=== PATIENT | female | born 1930 | race Caucasian/White ===

== ENCOUNTER 2019-06-18 03:29 | Emergency (ER) | payer OTHER ==
[2019-06-18 04:13] LABS: Protime INR 0.95
[2019-06-18 04:15] LABS: Basophils % 0.5 % (0-1.3); Hematocrit 35.7 % (36.0-45.0); RBC Red Blood Cell Count 3.88 M/uL (3.86-4.86)
[2019-06-18 04:31] LABS: ALT/SGPT 12 U/L (12-78); AST/SGOT 9 U/L (15-37); Albumin 3.4 g/dL (3.4-5.0); Alkaline Phosphatase 51 U/L (45-117); BUN Blood Urea Nitrogen 16 mg/dL (7-18); Bicarbonate 27 mmol/L (21-32); Bilirubin Direct 0.2 mg/dL (0-0.2); Bilirubin Total 0.8 mg/dL (0.2-1.0); Glucose Level 112 mg/dL (74-106); Magnesium 2.3 mg/dL (1.8-2.4); NT PRO-BNP 230 pg/mL (<450); Protein, Total 6.7 g/dL (6.4-8.2); Sodium Level 143 mmol/L (136-145); Troponin (Emerg Dept Use Only) < 0.02 ng/mL (0.0-0.045)
--- NOTE | 2019-06-18 05:51 | EDPHYS ---
Physician Documentation [facility] Name: Michaela Anguiano Age: 88 yrs Sex: Female : 1930 Arrival Date: 06/18/2019 Time: 03:37 Bed 2 Private MD: ED Physician Darinel Curtis HPI: 06/18 05:44 This 88 yrs old Female presents to ER via EMS with complaints of episode of ps1 SVT. 05:44 Patient BIBEMS for SVT. Patient noticed palpitations earlier in day associated with ps1 fatigue called EMS when she felt her heart racing. Patient evaluated by EMS and found patient in SVT and resolved with vagal maneuvers. Patient currently asymptomatic. . Historical: - Allergies: 03:52 PENICILLINS; ea 03:52 Latex, Natural Rubber; ea 03:52 adhesive tape; ea 03:52 Codeine; ea 03:52 erythromycin base; ea 03:52 Peanut; ea 03:52 Aspirin; ea - PSHx: 03:52 Hysterectomy; Cholecystectomy; Appendectomy; ea - Immunization history:: Adult Immunizations up to date. - Social history:: Smoking status: Patient/guardian denies using tobacco. - Ebola Screening: : No symptoms or risks identified at this time. ROS: 05:44 Constitutional: Negative for fever, chills, and weight loss, Eyes: Negative for injury, ps1 pain, redness, and discharge, Respiratory: Negative for shortness of breath, cough, wheezing, and pleuritic chest pain, Abdomen/GI: Negative for abdominal pain, nausea, vomiting, diarrhea, and constipation, MS/Extremity: Negative for injury and deformity, Skin: Negative for injury, rash, and discoloration, Neuro: Negative for headache, weakness, numbness, tingling, and seizure. 05:44 Cardiovascular: Positive for palpitations. Exam: 05:44 Constitutional: This is a well developed, well nourished patient who is awake, alert, ps1 and in no acute distress. Head/Face: Normocephalic, atraumatic. Eyes: Pupils equal round and reactive to light, extra-ocular motions intact. Lids and lashes normal. Conjunctiva and sclera are non-icteric and not injected. Chest/axilla: Normal chest wall appearance and motion. Nontender with no deformity. No lesions are appreciated. Cardiovascular: Regular rate and rhythm. No gallops, murmurs, or rubs. Normal PMI, no JVD. No pulse deficits. Respiratory: Lungs have equal breath sounds bilaterally, clear to auscultation and percussion. No rales, rhonchi or wheezes noted. No increased work of breathing, no retractions or nasal flaring. Abdomen/GI: Soft, non-tender, with normal bowel sounds. No distension or tympany. No guarding or rebound. No evidence of tenderness throughout. Skin: Warm, dry with normal turgor. Normal color with no rashes, no lesions, and no evidence of cellulitis. MS/ Extremity: Pulses equal, no cyanosis. Neurovascular intact. Full, normal range of motion. Neuro: Awake and alert, GCS 15, oriented to person, place, time, and situation. Cranial nerves II-XII grossly intact. Sensory grossly intact. Vital Signs: 03:48 BP 151 / 84; Pulse 87; Resp 18; Temp 98.2(TE); Pulse Ox 98% on R/A; Pain 0/10; ea 04:00 BP 151 / 70; Pulse 72; Resp 18; Pulse Ox 97% ; ea 05:00 BP 157 / 64; Pulse 68; Resp 18; Pulse Ox 98% ; ea 06:09 BP 140 / 60; Pulse 83; Resp 16; Temp 98.2(TE); Pulse Ox 97% on R/A; Pain 0/10; ak1 MDM: 04:12 Patient medically screened. ps1 05:44 Data reviewed: vital signs, nurses notes, lab test result(s), EKG, and as a result, I ps1 will discharge patient. 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 06/18 03:53 Order name: Basic Metabolic Panel; Complete Time: 05:01 ea 06/18 03:53 Order name: CBC with Diff; Complete Time: 05: ea 06/18 03:53 Order name: LFT's; Complete Time: 05: 06/18 03:53 Order name: Magnesium; Complete Time: 05: ea 06/18 03:53 Order name: NT PRO-BNP; Complete Time: 05: ea 06/18 03:53 Order name: PT-INR; Complete Time: 05: ea 06/18 03:53 Order name: Troponin (emerg Dept Use Only); Complete Time: 05: 06/18 03:53 Order name: XRAY Chest (1 view) 06/18 03:53 Order name: EKG; Complete Time: 03:56 06/18 03:53 Order name: Cardiac monitoring; Complete Time: 03:53 06/18 03:53 Order name: EKG - Nurse/Tech; Complete Time: 03:53 06/18 03:53 Order name: IV Saline Lock; Complete Time: 03:53 06/18 03:53 Order name: Labs collected and sent; Complete Time: 04:04 06/18 03:53 Order name: O2 Per Protocol; Complete Time: 03:53 06/18 03:53 Order name: O2 Sat Monitoring; Complete Time: 03:53 ea EC:44 Rate is 80 beats/min. Rhythm is regular. QRS [place] is Normal. IA interval is normal. QRS ps1 interval is normal. QT interval is normal. Q waves are Old in leads V1, V2. T waves are Normal. No ST changes noted. Clinical impression: NSR w/ Non-specific ST/T Changes. Administered Medications: No medications were administered Disposition: 06/18/19 05:51 Discharged to Home. Impression: Palpitations, Out of hospital supraventricular tachycardia. - Condition is Stable. - Discharge Instructions: Palpitations, Paroxysmal Supraventricular Tachycardia, [id number]. - Medication Reconciliation Form, Thank You Letter, Antibiotic Education, Prescription Opioid Use form. - Follow up: Private Physician; When: Tomorrow; Reason: Further diagnostic work-up, Recheck today's complaints, Re-evaluation by your physician. Follow up: Emergency Department; When: As needed; Reason: Trouble breathing, Worsening of condition. - Problem is new. - Symptoms are resolved. Signatures: Dispatcher [employer] EDMS Darlyn Shannon RN RN ea Singer, Phillip, MD MD ps1 Corrections: (The following items were deleted from the chart) :36 05:51 06/18/2019 05:51 Discharged to Home. Impression: Palpitations; Out of hospital ea supraventricular tachycardia. Condition is Stable. Forms are Medication Reconciliation Form, Thank You Letter, Antibiotic Education, Prescription Opioid Use. Follow up: Private Physician; When: Tomorrow; Reason: Further diagnostic work-up, Recheck today's complaints, Re-evaluation by your physician. Follow up: Emergency Department; When: As needed; Reason: Trouble breathing, Worsening of condition. Problem is new. Symptoms are resolved. ps1
--- NOTE | 2019-06-18 05:51 | ER ---
Nurse's Notes [facility] Name: Michaela Anguiano Age: 88 yrs Sex: Female : 1930 Arrival Date: 06/18/2019 Time: 03:37 Bed 2 Private MD: Diagnosis: Palpitations;Out of hospital supraventricular tachycardia Presentation: 06/18 03:41 Presenting complaint: EMS states: [facility] reports pt started having chest pain at 8 PM, ea pt went to bed and woke up with the same pain. Pt HR 190 on scene with SVT on the monitor, EMS had pt do vagal maneuvers, HR 80 and sinus rhythm after vagal maneuvers. 324 mg of ASA given per EMS. Transition of care: patient was not received from another setting of care. Onset of symptoms was June 18, 2019. Risk Assessment: Do you want to hurt yourself or someone else? Patient reports no desire to harm self or others. Initial Sepsis Screen: Does the patient meet any 2 criteria? No. Patient's initial sepsis screen is negative. Does the patient have a suspected source of infection? No. Patient's initial sepsis screen is negative. Care prior to arrival: 20 G to RAC, 324 mg ASA. 03:41 Method Of Arrival: EMS: [facility] ea 03:41 Acuity: JAQUI 3 ea Triage Assessment: 03:49 General: Appears in no apparent distress. Behavior is calm, cooperative, appropriate ea for age. Pain: Denies pain. Historical: - Allergies: 03:52 PENICILLINS; ea 03:52 Latex, Natural Rubber; ea 03:52 adhesive tape; ea 03:52 Codeine; ea 03:52 erythromycin base; ea 03:52 Peanut; ea 03:52 Aspirin; ea - PSHx: 03:52 Hysterectomy; Cholecystectomy; Appendectomy; ea - Immunization history:: Adult Immunizations up to date. - Social history:: Smoking status: Patient/guardian denies using tobacco. - Ebola Screening: : No symptoms or risks identified at this time. Screenin:47 Abuse screen: Denies threats or abuse. Nutritional screening: No deficits noted. ea Tuberculosis screening: No symptoms or risk factors identified. Fall Risk None identified. Assessment: 03:49 General: Appears in no apparent distress. Behavior is calm, cooperative, appropriate ea for age. Pain: Denies pain. Neuro: Level of Consciousness is awake, alert, obeys commands, Oriented to person, place, time, situation. Cardiovascular: Patient's skin is warm and dry. Respiratory: Airway is patent Respiratory effort is even, unlabored, Respiratory pattern is regular, symmetrical. GI: No signs and/or symptoms were reported involving the gastrointestinal system. Derm: Skin is pink, warm \T\ dry. Musculoskeletal: Circulation, motion, and sensation intact. 04:30 Reassessment: Patient and/or family updated on plan of care and expected duration. Pain ea level reassessed. Patient is alert, oriented x 3, equal unlabored respirations, skin warm/dry/pink. Patient states feeling better. 05:56 Reassessment: Patient and/or family updated on plan of care and expected duration. Pain ea level reassessed. Patient is alert, oriented x 3, equal unlabored respirations, skin warm/dry/pink. Patient states feeling better. 06:10 Reassessment: Patient appears in no apparent distress at this time. No changes from ak1 previously documented assessment. Patient and/or family updated on plan of care and expected duration. Pain level reassessed. Patient is alert, oriented x 3, equal unlabored respirations, skin warm/dry/pink. 06:30 Reassessment: Patient and/or family updated on plan of care and expected duration. Pain ea level reassessed. Patient is alert, oriented x 3, equal unlabored respirations, skin warm/dry/pink. Discharge instruction given to patient, verbalized the understanding of instruction. No s/s of pain or discomfort noted at this time. Pt left ED via wheelchair per staff, pt assisted to taxi per staff, pt tolerated well. Vital Signs: 03:48 BP 151 / 84; Pulse 87; Resp 18; Temp 98.2(TE); Pulse Ox 98% on R/A; Pain 0/10; ea 04:00 BP 151 / 70; Pulse 72; Resp 18; Pulse Ox 97% ; ea 05:00 BP 157 / 64; Pulse 68; Resp 18; Pulse Ox 98% ; ea 06:09 BP 140 / 60; Pulse 83; Resp 16; Temp 98.2(TE); Pulse Ox 97% on R/A; Pain 0/10; ak1 ED Course: 03:37 Patient arrived in ED. bb 03:41 Shannon, Darlyn, RN is Primary Nurse. ea 03:41 Darinel Curtis MD is Attending Physician. ps1 03:47 Triage completed. ea 03:47 Arm band placed on right wrist. Patient placed in an exam room, on a stretcher, on ea phototypesetting equipment monitor, on pulse oximetry. 03:48 Patient has correct armband on for positive identification. Placed in gown. Bed in low ea position. Call light in reach. Side rails up X2. 04:01 Maintain EMS IV. Dressing intact. Good blood return noted. Site clean \T\ dry. Gauge \T\ ea site: 20G RAC. 04:08 XRAY Chest (1 view) In Process Unspecified. EDMS 06:09 No provider procedures requiring assistance completed. ak1 06:26 IV discontinued, intact, bleeding controlled, No redness/swelling at site. Pressure ea dressing applied. Administered Medications: No medications were administered Outcome: 05:51 Discharge ordered by . ps1 06:09 Condition: improved ak1 06:09 Discharge instructions given to patient, Instructed on discharge instructions, follow up and referral plans. Demonstrated understanding of instructions, follow-up care. 06:33 Discharged to home via wheelchair, Pt assisted to Taxi per facility staff, tolerated ea well 06:36 Patient left the ED. ea Signatures: Dispatcher [employer] EDSaida Patel RN RN bb Krenek, Amber, RN RN Darlyn Eugene RN Darinel Huston ea, MD MD ps1
--- NOTE | 2019-06-18 07:34 | EKG ---
Test Date: 2019-06-18 Test Time: 03:39:06 First Assistant Manager: ROSSANA MEASUREMENT RESULTS: Intervals: Rate: 80 OR: 154 QRSD: 96 QT: 390 QTc: 449 [place]: P: 80 OR: 154 QRS: -36 T: 43 INTERPRETIVE STATEMENTS: Normal sinus rhythm Left axis deviation Possible Septal infarct, age undetermined Abnormal ECG Compared to ECG 08/14/2017 19:37:30 Left-axis deviation now present Possible Myocardial infarct finding now present Electronically Signed On 06-18-19 07:33:26 CDT by Kb Callaway
--- NOTE | 2019-06-18 08:48 | RAD REPORT ---
EXAM DESCRIPTION: Carol Single View06/18/2019 4:10 am CLINICAL HISTORY: Chest pain COMPARISON: November 2018 FINDINGS: The lungs are hyperaerated. The lungs appear clear of acute infiltrate. The heart is mildly enlarged IMPRESSION: COPD without visualization acute abnormality
== END 2019-06-18 06:36 | disposition home or self-care (01) ==
LOC: ER 03:29
DX: R00.2 Palpitations (principal); I47.1 Supraventricular tachycardia; Z88.0 Allergy status to penicillin; Z88.6 Allergy status to analgesic agent; Z88.1 Allergy status to other antibiotic agents; Z91.040 Latex allergy status; Z88.5 Allergy status to narcotic agent; Z91.010 Allergy to peanuts
CPT/HCPCS: 36415; 71045; 80048; 80076; 83735; 83880; 84484; 85025; 85610; 93005; 99284

== ENCOUNTER 2019-06-20 09:10 | Day surgery (SDC) | payer OTHER ==
[2019-06-19 11:55] LABS: Protime INR 0.95
--- NOTE | 2019-06-19 12:23 | RAD REPORT ---
EXAM DESCRIPTION: Carol Brian (2 Views)06/19/2019 11:56 am CLINICAL HISTORY: Preop for cardiac catheterization COMPARISON: June 18, 2019 FINDINGS: The lungs appear clear of acute infiltrate. The heart is normal size IMPRESSION: No acute abnormalities displayed
[2019-06-20] MEDS ORDERED: NA CHLORIDE 0.9% 500 ML ONE (09:32)
[2019-06-20] MEDS ORDERED: HEPA 1000U/500MLS 1,000 UNIT/500 ML BAG IV ONE (11:39)
[2019-06-20] MEDS ORDERED: MIDAZOLAM HCL 2 MG/2 ML INJ ONE (11:39)
[2019-06-20] MEDS ORDERED: ATROPINE SULF 1 MG/10 ML SYR IV ONE (11:40)
[2019-06-20] MEDS ORDERED: LIDOCAINE 1% MPF 30 ML VIAL ONE (11:40)
[2019-06-20] MEDS ORDERED: FENTANYL CITR 100 MCG/2 ML ONE (11:40)
[2019-06-20] MEDS ORDERED: NA CHLORIDE 0.9% 0 ML ONE (11:40)
--- NOTE | 2019-06-20 23:23 | OP ---
Surgeon: Segundo Munoz MD Rn Dermatology: Shawna Seo. Admitted on 06/20/2019 as an outpatient to the cardiac catheterization lab. History Of Present Illness: Ms. Anguiano is 88, continued to have substernal chest pain radiating to b oth shoulders and the back with shortness of breath and diaphoresis with exertion. Last catheterizat ion was in September 2018, showed no significant coronary artery disease. I initially did a stress te st on her, which was normal. However, she continued to complain of symptoms with walking up to not e moi 100 feet. We decided to repeat heart catheterization today. She was brought to the wood preserving plant laborer, pr epped and draped in the routine sterile fashion, given Versed for sedation. Right common femoral art demetris access was obtained with a 6-Kinyarwanda sheath. Angiography there was normal. Angio-Seal was used t o close the case. Coronary angiography using Hailey catheter revealed a normal RCA, which was nondo minant. Her circumflex was normal and dominant. Her LAD was normal without any significant disease. 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 She started having chest pain. Her left ventricular aortic pressure dampened to about 50 systolic. No evidence of stenosis was noted, I think she is having coronary spasm. Ther e were no complications. Blood loss 5 cc. Plan: Plan is for medical therapy change to a calcium channel wendy, add nitroglycerin. Anesthesia: Total conscious sedation was 30 minutes. Followup: Patient will go home today and see me in the office in the next 2 weeks. MEMO/ERLIN Voice ID: [id number] Report ID: [id number]
== END 2019-06-20 14:39 | disposition home or self-care (01) ==
LOC: CCL 09:10
DX: I20.0 Unstable angina (principal); I35.9 Nonrheumatic aortic valve disorder, unspecified; I10 Essential (primary) hypertension; E78.5 Hyperlipidemia, unspecified; E03.9 Hypothyroidism, unspecified; K21.9 Gastro-esophageal reflux disease without esophagitis; M19.90 Unspecified osteoarthritis, unspecified site; Z88.0 Allergy status to penicillin; Z91.010 Allergy to peanuts
CPT/HCPCS: 36415; 85610; 85730; 71046; 93454; C1893; C1760; J2250; J3010; J0583

== ENCOUNTER 2019-06-24 13:32 | Emergency (ER) | payer OTHER ==
[2019-06-24] MEDS ORDERED: NA CHLORIDE 0.9% 1,000 ML ONE (13:52)
[2019-06-24 14:08] LABS: Absolute Lymphocytes (CBC) 1.8 K/uL (0.7-4.9); Basophils % 0.8 % (0-1.3); Hematocrit 37.3 % (36.0-45.0); Lymphocytes % 32.9 % (15.3-44.8); MPV 7.9 fL (7.6-11.3); RBC Red Blood Cell Count 4.06 M/uL (3.86-4.86)
[2019-06-24 14:10] LABS: Protime INR 0.96
--- NOTE | 2019-06-24 14:20 | EKG ---
Test Date: 2019-06-24 Test Time: 13:46:42 Outpatient Receptionist: MIKEY MEASUREMENT RESULTS: Intervals: Rate: 75 OR: 146 QRSD: 92 QT: 390 QTc: 435 [place]: P: 72 OR: 146 QRS: -32 T: 38 INTERPRETIVE STATEMENTS: Normal sinus rhythm Left axis deviation Septal infarct, age undetermined Abnormal ECG Compared to ECG 06/18/2019 03:39:06 No significant changes Electronically Signed On 06-24-19 14:19:44 CDT by Kb Callaway
[2019-06-24 14:39] LABS: ALT/SGPT 15 U/L (12-78); AST/SGOT 14 U/L (15-37); Albumin 3.6 g/dL (3.4-5.0); Alkaline Phosphatase 48 U/L (45-117); BUN Blood Urea Nitrogen 14 mg/dL (7-18); Bicarbonate 28 mmol/L (21-32); Bilirubin Direct 0.2 mg/dL (0-0.2); Bilirubin Total 0.8 mg/dL (0.2-1.0); Glucose Level 126 mg/dL (74-106); Lipase 123 U/L (73-393); Magnesium 2.3 mg/dL (1.8-2.4); NT PRO-BNP 321 pg/mL (<450); Potassium 3.7 mmol/L (3.5-5.1); Sodium Level 140 mmol/L (136-145); Troponin (Emerg Dept Use Only) < 0.02 ng/mL (0.0-0.045)
--- NOTE | 2019-06-24 15:01 | EDPHYS ---
Physician Documentation [facility] Name: Michaela Anguiano Age: 88 yrs Sex: Female : 1930 Arrival Date: 06/24/2019 Time: 13:34 Bed 8 Private MD: ED Physician Marshall Restrepo HPI: 06/24 14:28 This 88 yrs old Female presents to ER via EMS with complaints of Chest berry Pressure, Chest Pain > 30 y/o. 14:28 The patient or guardian reports chest pain that is located primarily in the anterior berry chest wall, bilaterally. Onset: just prior to arrival. The pain does not radiate. Associated signs and symptoms: The patient has no apparent associated signs or symptoms. The chest pain is described as a pressure. Duration: The patient or guardian reports a single episode, that is now resolved, that lasted 15 second(s). Severity of pain: At its worst the pain was moderate in the emergency department the pain has resolved and did so just prior to arrival. The patient has experienced similar episodes in the past, several times. Historical: - Allergies: 13:47 adhesive tape; tw2 13:47 Aspirin; tw2 13:47 Codeine; tw2 13:47 erythromycin base; tw2 13:47 Latex, Natural Rubber; tw2 13:47 Peanut; tw2 13:47 PENICILLINS; tw2 - PSHx: 13:47 Hysterectomy; Cholecystectomy; Appendectomy; heart cath; tw2 - Immunization history:: Adult Immunizations. - Social history:: Smoking status: . - Ebola Screening: : Patient denies travel to an Ebola-affected area in the 21 days before illness onset. ROS: 14:28 Constitutional: Negative for fever, chills, and weight loss, Eyes: Negative for injury, berry pain, redness, and discharge, ENT: Negative for injury, pain, and discharge, Neck: Negative for injury, pain, and swelling, Respiratory: Negative for shortness of breath, cough, wheezing, and pleuritic chest pain, Abdomen/GI: Negative for abdominal pain, nausea, vomiting, diarrhea, and constipation, Back: Negative for injury and pain, : Negative for injury, bleeding, discharge, and swelling, MS/Extremity: Negative for injury and deformity, Skin: Negative for injury, rash, and discoloration, Neuro: Negative for headache, weakness, numbness, tingling, and seizure, Psych: Negative for depression, anxiety, suicide ideation, homicidal ideation, and hallucinations, Allergy/Immunology: Negative for hives, rash, and allergies, Endocrine: Negative for neck swelling, polydipsia, polyuria, polyphagia, and marked weight changes. 14:28 Cardiovascular: Positive for chest pain, of the chest. Exam: 14:28 Constitutional: This is a well developed, well nourished patient who is awake, alert, berry and in no acute distress. Head/Face: Normocephalic, atraumatic. Eyes: Pupils equal round and reactive to light, extra-ocular motions intact. Lids and lashes normal. Conjunctiva and sclera are non-icteric and not injected. Cornea within normal limits. Periorbital areas with no swelling, redness, or edema. ENT: Nares patent. No nasal discharge, no septal abnormalities noted. Tympanic membranes are normal and external auditory canals are clear. Oropharynx with no redness, swelling, or masses, exudates, or evidence of obstruction, uvula midline. Mucous membranes moist. Neck: Trachea midline, no thyromegaly or masses palpated, and no cervical lymphadenopathy. Supple, full range of motion without nuchal rigidity, or vertebral point tenderness. No Meningismus. Chest/axilla: Normal chest wall appearance and motion. Nontender with no deformity. No lesions are appreciated. Cardiovascular: Regular rate and rhythm with a normal S1 and S2. No gallops, murmurs, or rubs. Normal PMI, no JVD. No pulse deficits. Respiratory: Lungs have equal breath sounds bilaterally, clear to auscultation and percussion. No rales, rhonchi or wheezes noted. No increased work of breathing, no retractions or nasal flaring. Abdomen/GI: Soft, non-tender, with normal bowel sounds. No distension or tympany. No guarding or rebound. No evidence of tenderness throughout. Back: No spinal tenderness. No costovertebral tenderness. Full range of motion. Skin: Warm, dry with normal turgor. Normal color with no rashes, no lesions, and no evidence of cellulitis. MS/ Extremity: Pulses equal, no cyanosis. Neurovascular intact. Full, normal range of motion. Neuro: Awake and alert, GCS 15, oriented to person, place, time, and situation. Cranial nerves II-XII grossly intact. Motor strength 5/5 in all extremities. Sensory grossly intact. Cerebellar exam normal. Normal gait. Psych: Awake, alert, with orientation to person, place and time. Behavior, mood, and affect are within normal limits. Vital Signs: 13:35 BP 168 / 77; Pulse 82; Resp 17; Pulse Ox 99% on R/A; tw2 13:38 Temp 97.8(TE); Pulse Ox 1% ; Weight 59.42 kg (R); Height 5 ft. 2 in. (157.48 cm); Pain tw2 0/10; 14:44 BP 162 / 70; Pulse 71; Resp 18; Pulse Ox 98% on R/A; Pain 0/10; em1 15:45 BP 135 / 62; Pulse 68; Resp 17; Pulse Ox 98% on R/A; tw2 13:38 Body Mass Index 23.96 (59.42 kg, 157.48 cm) tw2 MDM: 13:38 Patient medically screened. [facility] 14:31 Data reviewed: vital signs, nurses notes, lab test result(s), EKG, radiologic studies, berry plain films. 06/24 13:40 Order name: Basic Metabolic Panel; Complete Time: 14:50 [facility] 06/24 13:40 Order name: CBC with Diff; Complete Time: 14:27 [facility] 06/24 13:40 Order name: LFT's; Complete Time: 14:50 [facility] 06/24 13:40 Order name: Magnesium; Complete Time: 14:50 [facility] 06/24 13:40 Order name: NT PRO-BNP; Complete Time: 14:50 [facility] 06/24 13:40 Order name: PT-INR; Complete Time: 14:27 [facility] 06/24 13:40 Order name: Troponin (emerg Dept Use Only); Complete Time: 14:50 [facility] 06/24 13:40 Order name: XRAY Chest (1 view); Complete Time: 15:45 [facility] 06/24 13:40 Order name: EKG; Complete Time: 13:43 [facility] 06/24 13:40 Order name: Cardiac monitoring; Complete Time: 13:46 [facility] 06/24 13:40 Order name: EKG - Nurse/Tech; Complete Time: 13:46 [facility] 06/24 13:40 Order name: IV Saline Lock; Complete Time: 15:31 [facility] 06/24 13:40 Order name: Lipase; Complete Time: 14:50 [facility] 06/24 13:40 Order name: Labs collected and sent; Complete Time: 15:31 [facility] 06/24 13:40 Order name: O2 Per Protocol; Complete Time: 13:46 [facility] 06/24 13:40 Order name: O2 Sat Monitoring; Complete Time: 13:46 [facility] Administered Medications: 13:50 Drug: NS 0.9% 1000 ml Route: IV; Rate: 125 ml/hr; Site: right antecubital; tw2 15:29 Follow up: IV Status: Order to discontinue infusion tw2 Disposition: 06/24/19 14:59 Discharged to Home. Impression: Chest pain, unspecified. - Condition is Stable. - Discharge Instructions: Nonspecific Chest Pain, Nonspecific Chest Pain, [id number]. - Medication Reconciliation Form, Thank You Letter, Antibiotic Education, Prescription Opioid Use form. - Follow up: Private Physician; When: 1 - 2 days; Reason: Recheck today's complaints, Continuance of care, Re-evaluation by your physician. Follow up: Segundo Munoz; When: 1 - 2 days; Reason: Recheck today's complaints, Continuance of care, Re-evaluation by your physician. Follow up: Segundo Munoz MD; When: Upon discharge from the Emergency Department; Reason: Re-evaluation by your physician. - Problem is new. - Symptoms have improved. Signatures: Dispatcher [employer] EDGA Marshall Restrepo MD MD cha Wise, Tara RN RN tw2 Corrections: (The following items were deleted from the chart) 15:00 14:59 06/24/2019 14:59 Discharged to Home. Impression: Chest pain, unspecified. [facility] Condition is Stable. Discharge Instructions: Nonspecific Chest Pain, Nonspecific Chest Pain, [id number]. Forms are Medication Reconciliation Form, Thank You Letter, Antibiotic Education, Prescription Opioid Use. Follow up: Private Physician; When: 1 - 2 days; Reason: Recheck today's complaints, Continuance of care, Re-evaluation by your physician. Follow up: Segundo Munoz; When: 1 - 2 days; Reason: Recheck today's complaints, Continuance of care, Re-evaluation by your physician. Problem is new. Symptoms have improved. [facility] 15:46 15:00 06/24/2019 14:59 Discharged to Home. Impression: Chest pain, unspecified. tw2 Condition is Stable. Discharge Instructions: Nonspecific Chest Pain, Nonspecific Chest Pain, [id number]. Forms are Medication Reconciliation Form, Thank You Letter, Antibiotic Education, Prescription Opioid Use. Follow up: Private Physician; When: 1 - 2 days; Reason: Recheck today's complaints, Continuance of care, Re-evaluation by your physician. Follow up: Segundo Munoz; When: Upon discharge from the Emergency Department; Reason: Re-evaluation by your physician. Problem is new. Symptoms have improved. berry
--- NOTE | 2019-06-24 15:01 | ER ---
Nurse's Notes [facility] Name: Michaela Anguiano Age: 88 yrs Sex: Female : 1930 Arrival Date: 06/24/2019 Time: 13:34 Bed 8 Private MD: Diagnosis: Chest pain, unspecified Presentation: 06/24 13:34 Presenting complaint: EMS states: pt was at [facility] visiting her , sitting tw2 down, and started having chest pressure suddenly, she states she had a previous episode like this before and had a heart cath recently. Transition of care: patient was not received from another setting of care. Onset of symptoms was June 24, 2019. Risk Assessment: Do you want to hurt yourself or someone else? Patient reports no desire to harm self or others. Initial Sepsis Screen: Does the patient meet any 2 criteria? No. Patient's initial sepsis screen is negative. Does the patient have a suspected source of infection? No. Patient's initial sepsis screen is negative. Care prior to arrival: None. 13:34 Method Of Arrival: EMS: [facility] tw2 13:34 Acuity: JAQUI 2 tw2 Triage Assessment: 13:35 General: Appears in no apparent distress. slender, well groomed, Behavior is calm, tw2 cooperative, appropriate for age. Pain: Complains of pain in chest. Historical: - Allergies: 13:47 adhesive tape; tw2 13:47 Aspirin; tw2 13:47 Codeine; tw2 13:47 erythromycin base; tw2 13:47 Latex, Natural Rubber; tw2 13:47 Peanut; tw2 13:47 PENICILLINS; tw2 - PSHx: 13:47 Hysterectomy; Cholecystectomy; Appendectomy; heart cath; tw2 - Immunization history:: Adult Immunizations. - Social history:: Smoking status: . - Ebola Screening: : Patient denies travel to an Ebola-affected area in the 21 days before illness onset. Screenin:35 Abuse screen: Denies threats or abuse. Nutritional screening: No deficits noted. tw2 Tuberculosis screening: No symptoms or risk factors identified. Fall Risk Secondary diagnosis (15 points) impaired mobility. Assessment: 13:35 General: Appears in no apparent distress. slender, well groomed, Behavior is calm, tw2 cooperative, appropriate for age. Pain: Complains of pain in chest Pain does not radiate. Pain began suddenly, 30 min ago. Pain: Pain began pt states "i had an episode here recently as the exact same thing and was seen here". Neuro: Level of Consciousness is awake, alert, obeys commands, Oriented to person, place, time, situation. Cardiovascular: Heart tones S1 S2 Patient's skin is warm and dry. Respiratory: Airway is patent Respiratory effort is even, unlabored, Respiratory pattern is regular, symmetrical, Breath sounds are clear bilaterally. GI: No signs and/or symptoms were reported involving the gastrointestinal system. Abdomen is flat, Bowel sounds present X 4 quads. : No signs and/or symptoms were reported regarding the genitourinary system. EENT: No signs and/or symptoms were reported regarding the EENT system. Derm: No signs and/or symptoms reported regarding the dermatologic system. Musculoskeletal: Range of motion: intact in all extremities. Vital Signs: 13:35 BP 168 / 77; Pulse 82; Resp 17; Pulse Ox 99% on R/A; tw2 13:38 Temp 97.8(TE); Pulse Ox 1% ; Weight 59.42 kg (R); Height 5 ft. 2 in. (157.48 cm); Pain tw2 0/10; 14:44 BP 162 / 70; Pulse 71; Resp 18; Pulse Ox 98% on R/A; Pain 0/10; em1 15:45 BP 135 / 62; Pulse 68; Resp 17; Pulse Ox 98% on R/A; tw2 13:38 Body Mass Index 23.96 (59.42 kg, 157.48 cm) tw2 ED Course: 13:34 Patient arrived in ED. tw2 13:35 Triage completed. tw2 13:35 Arm band placed on. tw2 13:35 Placed in gown. Bed in low position. Side rails up X2. Adult w/ patient. Cardiac tw2 monitor on. Pulse ox on. NIBP on. Warm blanket given. 13:35 Patient maintains SpO2 saturation greater than 95% on room air. tw2 13:38 Trinity Mensah, LUNA is Primary Nurse. tw2 13:38 Marshall Restrepo MD is Attending Physician. [facility] 13:50 Inserted saline lock: 22 gauge in right antecubital area, using aseptic technique. tw2 Blood collected. 14:17 EKG done, by turbine technician. reviewed by Masrhall Restrepo MD. [facility] 14:57 X-ray completed. Portable x-ray completed in exam room. Patient tolerated procedure mh1 well. 14:59 Segundo Munoz MD is Referral Physician. [facility] 15:00 Referral Physician role handed off by Segundo Munoz MD [facility] 15:00 Segundo Munoz MD is Referral Physician. [facility] 15:00 XRAY Chest (1 view) In Process Unspecified. EDMS 15:32 Inserted. tw2 15:46 No provider procedures requiring assistance completed. IV discontinued, intact, tw2 bleeding controlled, No redness/swelling at site. Pressure dressing applied. Administered Medications: 13:50 Drug: NS 0.9% 1000 ml Route: IV; Rate: 125 ml/hr; Site: right antecubital; tw2 15:29 Follow up: IV Status: Order to discontinue infusion tw2 Outcome: 14:59 Discharge ordered by . [facility] 15:45 Discharged to home with friend, pt to go to Dr. Munoz's office for event monitor at tw2 this time 15:45 Condition: stable 15:45 Discharge instructions given to patient, friend, Instructed on discharge instructions, follow up and referral plans. Demonstrated understanding of instructions, follow-up care. 15:46 Patient left the ED. tw2 Signatures: Dispatcher [employer] Marshall Hanna MD MD cha Harvey, Martha 1 Mook Mckeon 1 Trinity Mensah, RN RN tw2 Luzma Ovalles 3
--- NOTE | 2019-06-24 15:35 | RAD REPORT ---
EXAM DESCRIPTION: RAD - Chest Single View - 06/24/2019 3:01 pm CLINICAL HISTORY: Chest pain and pressure COMPARISON: June 19 TECHNIQUE: AP portable chest image was obtained 1450 hours . FINDINGS: No focal lung parenchymal process. Interstitial pattern is prominent but stable from prior imaging. Prominent costochondral calcifications present. Heart and vasculature are normal. No measur able pleural effusion and no pneumothorax. No acute bony abnormality seen. No acute aortic findings s uspected. IMPRESSION: No acute cardiopulmonary process. No significant change from comparison.
== END 2019-06-24 15:46 | disposition home or self-care (01) ==
LOC: ER 13:32
DX: R07.9 Chest pain, unspecified (principal); Z88.0 Allergy status to penicillin; Z88.6 Allergy status to analgesic agent; Z91.040 Latex allergy status; Z88.5 Allergy status to narcotic agent; Z91.010 Allergy to peanuts
CPT/HCPCS: 96361; 93005; 85025; 80048; 36415; 83735; 85610; 80076; 84484; 83690; 83880; 71045; 96360; 99285; J7030

== ENCOUNTER 2019-06-30 21:20 | Emergency (ER) | payer OTHER ==
[2019-06-30 21:45] LABS: Absolute Lymphocytes (CBC) 2.6 K/uL (0.7-4.9); Basophils % 0.7 % (0-1.3); Hematocrit 37.9 % (36.0-45.0); Lymphocytes % 40.7 % (15.3-44.8); MPV 7.6 fL (7.6-11.3); RBC Red Blood Cell Count 4.07 M/uL (3.86-4.86)
[2019-06-30 21:48] LABS: Protime INR 0.97
[2019-06-30 22:04] LABS: ALT/SGPT 15 U/L (12-78); AST/SGOT 10 U/L (15-37); Albumin 3.7 g/dL (3.4-5.0); Alkaline Phosphatase 49 U/L (45-117); BUN Blood Urea Nitrogen 16 mg/dL (7-18); Bicarbonate 26 mmol/L (21-32); Bilirubin Direct 0.2 mg/dL (0-0.2); Bilirubin Total 0.8 mg/dL (0.2-1.0); Glucose Level 98 mg/dL (74-106); Magnesium 2.5 mg/dL (1.8-2.4); NT PRO-BNP 220 pg/mL (<450); Potassium 4.2 mmol/L (3.5-5.1); Protein, Total 6.9 g/dL (6.4-8.2); Sodium Level 140 mmol/L (136-145); Troponin (Emerg Dept Use Only) < 0.02 ng/mL (0.0-0.045)
--- NOTE | 2019-06-30 22:28 | ER ---
Nurse's Notes [facility] Name: Michaela Anguiano Age: 88 yrs Sex: Female : 1930 Arrival Date: 06/30/2019 Time: 21:24 Bed 25 Private MD: Diagnosis: Chest pain, unspecified Presentation: 06/30 21:34 Presenting complaint: Patient states: Reports she started having chest pain about two ea hours ago, pt reports it's in the epigastric area pain rated 6/10, does not radiate. Is being seen by director of rooms and has been put on a halter monitor. Transition of care: patient was not received from another setting of care. Onset of symptoms was June 30, 2019. Risk Assessment: Do you want to hurt yourself or someone else? Patient reports no desire to harm self or others. Initial Sepsis Screen: Does the patient meet any 2 criteria? No. Patient's initial sepsis screen is negative. Does the patient have a suspected source of infection? No. Patient's initial sepsis screen is negative. Care prior to arrival: None. 21:34 Method Of Arrival: Wheelchair ea 21:34 Acuity: JAQUI 3 ea Triage Assessment: 21:38 General: Appears uncomfortable, Behavior is appropriate for age. Pain: Denies pain. ea Neuro: Level of Consciousness is awake, alert, obeys commands, Oriented to person, place, time, situation. Cardiovascular: Patient's skin is warm and dry. Respiratory: Airway is patent Respiratory effort is even, unlabored, Respiratory pattern is regular, symmetrical. Derm: Skin is pink, warm \T\ dry. - Immunization history:: Adult Immunizations up to date. - Social history:: Smoking status: Patient/guardian denies using tobacco. - Ebola Screening: : No symptoms or risks identified at this time. Screenin:38 Abuse screen: Denies threats or abuse. Nutritional screening: No deficits noted. ea Tuberculosis screening: No symptoms or risk factors identified. Fall Risk None identified. Assessment: 21:40 General: Appears in no apparent distress. comfortable, Behavior is calm, cooperative. rv Pain: Complains of pain in chest Pain does not radiate. Pain currently is 3 out of 10 on a pain scale. Quality of pain is described as pressure, Pain began suddenly. Neuro: Level of Consciousness is awake, alert, obeys commands, Oriented to person, place, time, situation. Cardiovascular: Rhythm is regular. Respiratory: Airway is patent. GI: No signs and/or symptoms were reported involving the gastrointestinal system. : No signs and/or symptoms were reported regarding the genitourinary system. EENT: No signs and/or symptoms were reported regarding the EENT system. Derm: Skin is intact. Musculoskeletal: No signs and/or symptoms reported regarding the musculoskeletal system. 22:40 Reassessment: FRANCISCO JAVIER ROE NP EXPLAINED AT BEDSIDE TO THE PATIENT THE PLAN OF CARE rv AND THE RESULTS OF THE LAST VISITS FOR THE LAST 12 DAYS. PATIENT DECIDED TO GO HOME AFTER THE BLOOD RESULTS CAME BACK AND SIGNED THE AMA. Vital Signs: 21:38 BP 151 / 67; Pulse 80; Resp 18; Temp 97.8; Pulse Ox 99% on R/A; Weight 59.42 kg; Height ea 5 ft. 2 in. (157.48 cm); Pain 6/10; 22:00 BP 144 / 57; Pulse 70; Resp 15; Pulse Ox 98% on R/A; rv 21:38 Body Mass Index 23.96 (59.42 kg, 157.48 cm) ea ED Course: 21:24 Patient arrived in ED. ag3 21:27 Prakash Randolph, LUNA is Primary Nurse. rv 21:27 Francisco Javier Roe NP is PHCP. pm1 21:28 Ha Acosta MD is Attending Physician. pm1 21:37 Triage completed. ea 21:37 Patient has correct armband on for positive identification. Bed in low position. Call ea light in reach. Side rails up X2. air sampling and monitoring on. Pulse ox on. NIBP on. 21:40 Arm band placed on right wrist. Patient placed in an exam room, on a stretcher, on ea threat monitoring analyst, on pulse oximetry. 21:40 Patient maintains SpO2 saturation greater than 95% on room air. ea 21:43 Initial lab(s) drawn, by me, sent to lab. Inserted saline lock: 20 gauge in left rv antecubital area, using aseptic technique. Blood collected. 22:07 XRAY Chest (1 view) In Process Unspecified. EDMS 22:42 No provider procedures requiring assistance completed. IV discontinued, intact, rv bleeding controlled, No redness/swelling at site. Pressure dressing applied. Administered Medications: No medications were administered Outcome: AMA AMA form signed rv Condition: stable : Patient left the ED. rv Signatures: Dispatcher [employer] EDMS Francisco Javier Roe NP DRILLER OPERATOR pm1 Darlyn Shannon, RN RN Prakash Cannon RN RN Radha Mckeon ag3
--- NOTE | 2019-06-30 22:31 | EDPHYS ---
Physician Documentation [facility] Name: Michaela Anguiano Age: 88 yrs Sex: Female : 1930 Arrival Date: 06/30/2019 Time: 21:24 Bed 25 Private MD: ED Physician Ha Acosta HPI: 06/30 21:28 This 88 yrs old Female presents to ER via Wheelchair with complaints of Chest pm1 Pain. 21:28 The patient or guardian reports chest pain that is located primarily in the epigastric pm1 area. Onset: just prior to arrival. The pain does not radiate. Associated signs and symptoms: Pertinent negatives: cough, diaphoresis, dizziness, headache, nausea, shortness of breath, vomiting. The chest pain is described as burning. Duration: The patient or guardian reports a single episode, that is now resolved. Modifying factors: The symptoms are alleviated by nothing. the symptoms are aggravated by nothing. Severity of pain: in the emergency department the pain has resolved. The patient has experienced similar episodes in the past, Seen here 6 days ago with the same presentation. The patient has been recently seen at the [facility] Emergency [facility], last week, for similar complaints labs were performed, X-rays were performed. - Immunization history:: Adult Immunizations up to date. - Social history:: Smoking status: Patient/guardian denies using tobacco. - Ebola Screening: : No symptoms or risks identified at this time. ROS: 21:45 Constitutional: Negative for fever, chills, and weight loss, Eyes: Negative for injury, pm1 pain, redness, and discharge, ENT: Negative for injury, pain, and discharge, Neck: Negative for injury, pain, and swelling. 21:45 Respiratory: Negative for shortness of breath, cough, wheezing, and pleuritic chest pain, Abdomen/GI: Negative for abdominal pain, nausea, vomiting, diarrhea, and constipation, Back: Negative for injury and pain, : Negative for injury, bleeding, discharge, and swelling, MS/Extremity: Negative for injury and deformity, Skin: Negative for injury, rash, and discoloration, Neuro: Negative for headache, weakness, numbness, tingling, and seizure. 21:45 Cardiovascular: Positive for chest pain, Negative for edema, palpitations. Exam: 21:45 Constitutional: This is a well developed, well nourished patient who is awake, alert, pm1 and in no acute distress. Head/Face: Normocephalic, atraumatic. Eyes: Pupils equal round and reactive to light, extra-ocular motions intact. Lids and lashes normal. Conjunctiva and sclera are non-icteric and not injected. Cornea within normal limits. Periorbital areas with no swelling, redness, or edema. ENT: Nares patent. No nasal discharge, no septal abnormalities noted. Tympanic membranes are normal and external auditory canals are clear. Oropharynx with no redness, swelling, or masses, exudates, or evidence of obstruction, uvula midline. Mucous membranes moist. Neck: Trachea midline, no thyromegaly or masses palpated, and no cervical lymphadenopathy. Supple, full range of motion without nuchal rigidity, or vertebral point tenderness. No Meningismus. 21:45 Chest/axilla: Normal chest wall appearance and motion. Nontender with no deformity. No lesions are appreciated. 21:45 Respiratory: Lungs have equal breath sounds bilaterally, clear to auscultation and percussion. No rales, rhonchi or wheezes noted. No increased work of breathing, no retractions or nasal flaring. Abdomen/GI: Soft, non-tender, with normal bowel sounds. No distension or tympany. No guarding or rebound. No evidence of tenderness throughout. Back: No spinal tenderness. No costovertebral tenderness. Full range of motion. Skin: Warm, dry with normal turgor. Normal color with no rashes, no lesions, and no evidence of cellulitis. MS/ Extremity: Pulses equal, no cyanosis. Neurovascular intact. Full, normal range of motion. 21:45 Cardiovascular: Rate: normal, Rhythm: regular, Pulses: no pulse deficits are appreciated, Heart sounds: normal. 21:45 Neuro: Orientation: is normal, Motor: is normal, Sensation: is normal, no obvious gross deficits. Vital Signs: 21:38 BP 151 / 67; Pulse 80; Resp 18; Temp 97.8; Pulse Ox 99% on R/A; Weight 59.42 kg; Height ea 5 ft. 2 in. (157.48 cm); Pain 6/10; 22:00 BP 144 / 57; Pulse 70; Resp 15; Pulse Ox 98% on R/A; rv 21:38 Body Mass Index 23.96 (59.42 kg, 157.48 cm) ea MDM: 21:28 Patient medically screened. pm1 22:24 Data reviewed: vital signs. Data interpreted: Pulse oximetry: on room air is 99 %. pm1 Interpretation: normal. Refusal of service: The patient/guardian displays adequate decision making capability and despite a detailed discussion of alternatives, benefits, risks, and consequences refuses: Admission to the hospital for further work-up and treatment, Repeat troponin. Patient feels better and wants to go home now. 06/30 21:28 Order name: Basic Metabolic Panel; Complete Time: 22:24 pm1 06/30 21:28 Order name: CBC with Diff; Complete Time: 22:24 pm1 06/30 21:28 Order name: LFT's; Complete Time: 22:24 pm1 06/30 21:28 Order name: Magnesium; Complete Time: 22:24 pm06/30 21:28 Order name: NT PRO-BNP; Complete Time: 22:24 pm06/30 21:28 Order name: PT-INR; Complete Time: 22:24 pm1 06/30 21:28 Order name: Troponin (emerg Dept Use Only); Complete Time: 22:24 pm1 06/30 21:28 Order name: XRAY Chest (1 view) pm1 06/30 21:28 Order name: EKG; Complete Time: 21:30 pm1 06/30 21:28 Order name: Cardiac monitoring; Complete Time: 21:40 pm06/30 21:28 Order name: EKG - Nurse/Tech; Complete Time: 21:40 pm06/30 21:28 Order name: IV Saline Lock; Complete Time: 21:40 pm06/30 21:28 Order name: Labs collected and sent; Complete Time: 21:40 pm1 06/30 21:28 Order name: O2 Per Protocol; Complete Time: 21:40 pm06/30 21:28 Order name: O2 Sat Monitoring; Complete Time: 21:40 pm1 Administered Medications: No medications were administered Disposition: 07/01 10:48 Co-signature as Attending Physician, Ha Acosta MD I agree with the assessment and tw4 plan of care. Disposition: 06/30/19 22:26 Patient has left against medical advice. Impression: Chest pain, unspecified. - Patients states they are going to Home. - Condition is Stable. - Discharge Instructions: Nonspecific Chest Pain. Follow up: Emergency Department; When: Upon discharge from the Emergency Department; Reason: Worsening of condition. Follow up: Private Physician; When: Upon discharge from the Emergency Department; Reason: Worsening of condition. - Problem is new. - Symptoms have improved. Signatures: Dispatcher [employer] EDMS Francisco Javier Roe NP DIRECTOR PARK pm1 Darlyn Shannon RN RN Ha Wilcox MD MD tw4 Prakash Randolph RN RN rv Corrections: (The following items were deleted from the chart) 06/30 22:43 22:26 06/30/2019 22:26 Patients has left against medical advice. Impression: Chest rv pain, unspecified. Patient states they are going to Home. Condition is Stable. Follow up: Emergency Department; When: Upon discharge from the Emergency Department; Reason: Worsening of condition. Follow up: Private Physician; When: Upon discharge from the Emergency Department; Reason: Worsening of condition. Problem is new. Symptoms have improved. pm1
--- NOTE | 2019-07-01 08:26 | RAD REPORT ---
EXAM DESCRIPTION: RAD - Chest Single View - 06/30/2019 10:05 pm CLINICAL HISTORY: Chest pain COMPARISON: June 24 TECHNIQUE: AP portable chest image was obtained 2157 hours . FINDINGS: No focal lung parenchymal process. Interstitial pattern matches comparison. Heart and vasc ulature are normal. No measurable pleural effusion and no pneumothorax. No acute bony abnormality see n. No acute aortic findings suspected. IMPRESSION: No acute cardiopulmonary process. No significant interval change.
--- NOTE | 2019-07-01 09:59 | EKG ---
Test Date: 2019-06-30 Test Time: 21:34:16 Filter Tender: KHADIJAHT MEASUREMENT RESULTS: Intervals: Rate: 70 MN: 144 QRSD: 92 QT: 412 QTc: 444 Trimble: P: 74 MN: 144 QRS: -34 T: 43 INTERPRETIVE STATEMENTS: Normal sinus rhythm Left axis deviation Septal infarct, age undetermined Abnormal ECG Compared to ECG 06/24/2019 13:46:42 No significant changes Electronically Signed On 07-01-19 09:58:24 CDT by Kb Callaway
== END 2019-06-30 22:43 | disposition left against medical advice (07) ==
LOC: ER 21:20
DX: R07.9 Chest pain, unspecified (principal)
CPT/HCPCS: 36415; 71045; 80048; 80076; 83735; 83880; 84484; 85025; 85610; 93005

== ENCOUNTER 2020-12-15 06:52 | Day surgery (SDC) | payer OTHER ==
[2020-12-11 09:34] LABS: Absolute Lymphocytes (CBC) 1.4 K/uL (0.7-4.9); Basophils % 0.5 % (0-1.3); Hematocrit 38.1 % (36.0-45.0); Lymphocytes % 27.9 % (15.3-44.8); MPV 8.1 fL (7.6-11.3); RBC Red Blood Cell Count 4.08 M/uL (3.86-4.86)
[2020-12-11 09:52] LABS: Urine Appearance CLOUDY; Urine Bilirubin NEGATIVE (NEG); Urine Blood NEGATIVE (NEG); Urine Color YELLOW; Urine Glucose NEGATIVE (NEG); Urine Protein NEGATIVE (NEG); Urine Specific Gravity 1.015 (1.005-1.030); Urine pH 5.5 (5.0-7.0)
[2020-12-11 09:54] LABS: Protime INR 0.93
[2020-12-11 10:00] LABS: Urine Microscopic Reflex ORDER UMIC
[2020-12-11 10:00] LABS: Potassium 3.9 mmol/L (3.5-5.1)
[2020-12-11 10:01] LABS: Urine Bacteria LOADED /HPF (<20); Urine RBC NONE SEEN /HPF (NONE SEEN)
[2020-12-15] MEDS ORDERED: CLINDAMYCIN INJ 900 MG in NA CHLORIDE 0.9% 50 ML IV SCH (07:00)
[2020-12-15] MEDS ORDERED: FENTANYL CITR 100 MCG/2 ML ONE ×2 (07:15→09:49)
[2020-12-15] MEDS ORDERED: LIDOCAINE 1% MPF 5 ML VIAL ONE (07:15)
[2020-12-15] MEDS ORDERED: propofoL 200 MG/20 ML VIAL IV ONE (07:15)
[2020-12-15] MEDS ORDERED: CEFAZOLIN ONE (07:17)
[2020-12-15] MEDS ORDERED: Ringers Lactate 1,000 ML IV ONE (07:18)
[2020-12-15] MEDS ORDERED: NA CHLORIDE 0.9% 100 ML IV ONE (07:29)
[2020-12-15] MEDS: CLINDAMYCIN 900MG/D5W 0 MG/0 ML IVPB IV ONE ×2 (07:55→08:30)
[2020-12-15] MEDS ORDERED: dexAMETHasone 10 MG/ML VIAL ONE (08:01)
[2020-12-15] MEDS: VASOPRESSIN 20 UNIT/ML VIAL ONE ×2 (08:30→08:36)
[2020-12-15] MEDS: Ringers Lactate 1,000 ML IV ONE ×3 (09:53→09:58)
[2020-12-15] MEDS ORDERED: MEPERIDINE HCL 25 MG/ML SYR ONE (11:30)
[2020-12-15] MEDS ORDERED: ONDANSETRON 4 MG/2 ML VIAL ONE (11:31)
[2020-12-15] MEDS ORDERED: NITROFURAN MACRO 100 MG CAP PO ONE (13:15)
[2020-12-15 14:53] VITALS: O2SAT 95
[2020-12-15] MEDS ORDERED: MEPERIDINE HCL 50 MG/ML IM PRN (14:58)
[2020-12-15] MEDS ORDERED: IBUPROFEN 600 MG TAB PO PRN (14:58)
[2020-12-15] MEDS ORDERED: PROMETHAZINE INJ 25 MG/ML AMP IV PRN (14:58)
[2020-12-15] MEDS ORDERED: ACETAMINOPHEN 325 MG TABLET PO PRN (14:58)
[2020-12-15 15:54] VITALS: BMI 25.0
[2020-12-15] MEDS: NITROFURAN MACRO 100 MG CAP PO SCH (20:37)
[2020-12-16 07:38] LABS: Absolute Lymphocytes (CBC) 1.2 K/uL (0.7-4.9); Basophils % 0.5 % (0-1.3); Hematocrit 31.6 % (36.0-45.0); Lymphocytes % 21.8 % (15.3-44.8); MPV 8.4 fL (7.6-11.3); RBC Red Blood Cell Count 3.42 M/uL (3.86-4.86)
[2020-12-16] MEDS: NITROFURAN MACRO 100 MG CAP PO SCH (13:20)
[2020-12-16 15:51] VITALS: BP 127/54; TEMP 98.1
--- NOTE | 2020-12-20 20:41 | OP ---
Date of Procedure: 12/15/2020 Surgeon: Carmen Miranda MD Preoperative Diagnoses: Stage III vaginal wall prolapse, anterior wall and posterior wall prolapse w ith anterior greater than the posterior, and occult stress urinary incontinence. Postoperative Diagnoses: Stage III vaginal wall prolapse, anterior wall and posterior wall prolapse with anterior greater than the posterior, occult stress urinary incontinence, and perineal body defec t. Procedures Performed: 1.Vaginal colpocleisis. 2.Perineorrhaphy. 3.Mid-urethral sling and cystoscopy. Anesthesia: General. Specimens: None. Complications: None. Drains: Delgado catheter. Condition: Stable. Findings: Her POP-Q +1, +3, 0, 4, moderate, 6, +1, 0, and NA. Perineal body defect was significant with a distal most defect extending into the perineum. The perineal body itself was not too thin. The anterior defect and apical was significant and much larger than the posterior defect, slightly as ymmetrical. So, plan was made to take the larger trapezoid piece of epithelium out from the anterior wall, then the posterior wall. These were both drawn to match up each other and a transverse closur e was done at the very distal part. Then, the sling was placed without any problems. Then, cystosco py was negative without any foreign body or injury to the bladder. Both ureteric orifices were paten t. Indications: The patient is an 89-year-old female, who presented with vaginal prolapse about 8 years ago on my practice. She came with a vaginal pessary that was fitted, a donut pessary by Dr. Brower . This was continued for years. Then, she did not want to use any pessary. This caused more bulge symptoms and recurrent bladder infections, so she came back for refitting; however, at this point, he r vaginal introitus appeared to be larger, the genital hiatus appeared to be larger, and on fitting d ifferent sizers and types of pessaries, they did not work for her either. There was expulsion, signi ficant descend that led to the patient's discomfort and pain when she was sitting or expulsion that s he had to manage herself and sometimes came to the office. Despite all these, she did not have any s ignificant problems, but in the past 1 year she has come multiple times for problems with the pessary and the bladder infections as well as discomfort with pessary management. As her dementia has progr essed, it has become much more difficult for her to do self-care and she was needing multiple appoint ments in a much more frequent fashion with incomplete emptying. So finally, discussed about the opti ons of surgical vaginal colpocleisis and we have talked about this for years and reconstructive optio ns as well. At this time, she was confident that she wants to proceed with this as it was very diffi cult to deal with the prolapse and the pessary. After detail informed consent was performed with the patient and multiple visits in the presence of h er and a friend, she was finally consented after medical clearance from Dr. Munoz and Dr. Haily marvin. She was brought to the office and preop was done in a very thorough fashion. Then, plan to dis charge her the same day if she was mentally able to, however, backup plan to keep her overnight if th at was not feasible, especially during the COVID time. Due to all her multiple office visits and her worsening status, this was deemed to be an accessory procedure. Description Of Procedure: After informed consent was verified, she was taken back to OR, placed in a supine fashion on the operative table. General anesthesia was given. She was placed in dorsal lith otomy position. We discussed about the options of spinal and general anesthesia with anesthesiologis t, which was much more comfortable with a general anesthetic. She was then placed in a dorsal lithotomy position using Mark Anthony stirrups. Lower abdomen, vulva, vagin a, and perineum were prepped and draped in a sterile fashion. Delgado was placed to drain the bladder and retracted superiorly. Then, the POP-Q was done and is as dictated above. After identifying the distal portion of the anterior wall at the urethrovesical junction, an Allis wa s placed here. Then, the vaginal wall was marked and 2 Allis was placed on each side of the vaginal apex and the distal wall was also checked and Allis was placed at inner margin of the vestibule on ei ther sides. Once all this was done, the trapezoid skin incision was marked out in the anterior wall as well as the posterior wall making sure that eventually the distal portions were matched, so that t here could be a transverse closure for this patient. This was more the lateral way that the distal p ubic cervical fascia and the distal rectovaginal fascia were falling together. Once all this was planned and marked out, dilute vasopressin 20 units and 50 cc of normal saline was injected, 30 cc in the anterior wall in the areas of the dissection. Then, a trapezoid incision was made on all borders with a 15 blade, then the vaginal epithelium was denuded and removed from the ant erior wall. Once all this was done, then posteriorly, similar dissection marking was made and inject ion was done. Then, the epithelium was incised at all the borders and then excised using the knife. Once all the connective tissue was exposed underneath as well as a small apical enterocele, this was closed with the help of two 3-0 Vicryl sutures in an interrupted fashion. Once this was done, then the transverse closure was started at the very proximal part of the apex and here the anterior wall w as sewn to the posterior wall using 2-0 PDS. Then proceeded to finish the right lateral wall closure with a continuous running PDS and then went onto the left wall closure with 2-0 PDS in a continuous running fashion to the apex. Once all this was done, the anterior and posterior wang were brought t ogether with interrupted 2-0 Vicryl sutures in a [id number]-eg-chmjo fashion and once all 2 layers of jaison sure was done, then I was at the distal part. So at this point, the closure was performed with the h elp of 2-0 Vicryl in an interrupted [id number] fashion. About 4 sutures were placed for closure . Once this was done, there was excellent approximation of the distal pubocervical and rectovaginal connective tissue. Then, perineum was opened up in the midline and then dissected laterally to expos e the lateral part of the perineal body and the scar. Once the skin was excised, then 2-0 Vicryl sut ures were placed in a simple fashion from [id number], 3 were placed. Once this was completed, then the perineal incision was closed with the help of 3-0 Vicryl in a continuous running fashion, subcut aneous and subcuticular, and closed. Rectal exam was performed and no evidence of any foreign body or perforation. The mid-urethral area was picked up with the help of 2 Allis clamps and injected with dilute vasopres sin. Then, the tracts were also injected with this. Then, 15 blade was used to make a 1 cm mid-uret hral incision. Dissection was carried underneath the fascia creating a tunnel going towards the infe rior pubic ramus on the ipsilateral side. Once hugging this, obturator space was entered, rupture of membrane DICTATION ENDS HERE. TONA/ERLIN Voice ID: [id number] Report ID: [id number]
--- NOTE | 2020-12-20 21:02 | OP ---
Date of Procedure: 12/15/2020 Surgeon: Carmen Miranda MD Addendum: Mid-urethral sling: After the tunnels were created. The spike was passed along the wing guide into the obturator space and turning the spike, hugging the inferior pubic ramus, I exited at t he 0.2 cm lateral to the groin fold avoiding the adductor tendon. Then on the opposite side, similar path was taken after placing the wing guide and guiding the spike to the obturator space and perfora ting the obturator membrane. The wing guide was removed and spike turned and exited at the point sim ilar to the opposite side. Then, both plastic sheaths were pulled out through the skin. Sheath and the sling were held with Rosie clamps. Under the mid urethra, this was tensioned appropriately using Metzenbaum scissors in the midline. Then, thorough irrigation with antibiotic solution was done. S heaths were pulled out leaving the mesh in the right tensioned spot. Then, both slings were trimmed, very flushed with the skin. Then, skin pulled up and closed with the help of Dermabond on both side s. The vaginal incision was closed with the help of 3-0 Vicryl in a continuous running locked fashio n. Then, Delgado was removed and cystoscopy was performed with a 17-Micronesian sheath, 30-degree lens, nor mal saline. No evidence of any foreign body or trauma to the bladder. The trigone area above the tr igone dome and the lateral wang were all well visualized. The urethra was well visualized on the wa y out. The bladder was drained, Delgado was replaced. The patient was recovered from anesthesia. EBL was less than 100. Urine output was about 200. No complications. The patient was recovered and ta phuong to the PACU in stable condition. SK/MODL Voice ID: [id number] Report ID: [id number]
== END 2020-12-16 14:05 | disposition home or self-care (01) ==
LOC: 2ND-WC 06:52 → OR 06:52
PROVIDERS: ATTEND Obstetrics & Gynecology
PROC: 0TSD4ZZ Reposition Urethra, Percutaneous Endoscopic Approach (ICD-10-PCS; 2020-12-15)
PROC: 0HQ9XZZ Repair Perineum Skin, External Approach (ICD-10-PCS; 2020-12-15)
PROC: 0ULG7ZZ Occlusion of Vagina, Via Natural or Artificial Opening (ICD-10-PCS; principal; 2020-12-15 07:30)
DX: N99.3 Prolapse of vaginal vault after hysterectomy (principal); N81.12 Cystocele, lateral; N39.3 Stress incontinence (female) (male); I10 Essential (primary) hypertension; Z20.822 Contact with and (suspected) exposure to COVID-19
CPT/HCPCS: 93005; 87088; 85025 ×2; 87086; 80048 ×2; 36415 ×2; 86900; 86850; 85610; 86901; 85730; 87077; 87186; 57120; 57288; 56810; U0002; J2704; J3010 ×2; J1100; J2175 ×2; J0690; J7120 ×2; J2405; 81003; 81015

== ENCOUNTER 2020-12-17 17:44 | Inpatient (IN) | payer OTHER ==
[2020-12-17 18:36] LABS: ALT/SGPT 13 U/L (12-78); AST/SGOT 10 U/L (15-37); Albumin 2.8 g/dL (3.4-5.0); Alkaline Phosphatase 43 U/L (45-117); BUN Blood Urea Nitrogen 9 mg/dL (7-18); Bicarbonate 27 mmol/L (21-32); Bilirubin Direct 0.2 mg/dL (0-0.2); Bilirubin Total 0.6 mg/dL (0.2-1.0); Creatine Phosphokinase 77 U/L (26-192); Glucose Level 115 mg/dL (74-106); Potassium 3.4 mmol/L (3.5-5.1); Protein, Total 5.7 g/dL (6.4-8.2); Sodium Level 140 mmol/L (136-145)
[2020-12-17 18:37] LABS: Absolute Lymphocytes (CBC) 0.4 K/uL (0.7-4.9); Basophils % 0.2 % (0-1.3); Lymphocytes % 7.1 % (15.3-44.8); MPV 8.4 fL (7.6-11.3); RBC Red Blood Cell Count 3.89 M/uL (3.86-4.86)
[2020-12-17 18:41] LABS: Protime INR 1.03
--- NOTE | 2020-12-17 19:06 | RAD REPORT ---
EXAM DESCRIPTION: RAD - Chest Single View - 12/17/2020 6:51 pm CLINICAL HISTORY: DYSPNEA Chest pain. COMPARISON: Chest Pa And Lat (2 Views) dated 11/03/2020; Chest Single View dated 06/30/2019; Chest Si ngle View dated 06/24/2019; Chest Pa And Lat (2 Views) dated 06/19/2019 FINDINGS: Portable technique limits examination quality. Moderate bilateral interstitial lung opacities are present, greater on the right. This may indicate v iral pneumonitis or mild pulmonary edema. The heart is mildly prominent. No displaced fractures.
[2020-12-17 19:21] LABS: SARS-COV-2 RT PCR NEGATIVE (NEGATIVE)
[2020-12-17 20:13] LABS: Urine Bacteria <20 /HPF (<20); Urine RBC <5 /HPF (NONE SEEN)
[2020-12-17] MEDS ORDERED: POTASSIUM CL SA 10 MEQ TAB PO ONE (20:28)
--- NOTE | 2020-12-17 20:58 | ER ---
Nurse's Notes [facility] Name: Michaela Anguiano Age: 89 yrs Sex: Female : 1930 Arrival Date: 12/17/2020 Time: 17:51 Bed 13 Private MD: Diagnosis: Supraventricular tachycardia;Chest pain, unspecified;Fever, unspecified;Pneumonia due to other specified bacteria Presentation: 12/17 17:51 Chief complaint: EMS states: pt from home started having some SOB with chest pain this tw2 morning, then about 3 hours ago it started again, called us, we noted HR in 200's, showed SVT, pts c/o SOB, she initially was 91% on RA, she vagal maneuvered HR went down to 130's we gave 500 NS and HR went down to the 90's, she is sinus tach now with pvc's, she had 101.8 temperature, we gave 1g tylenol, pt was here Monday had bladder sx with dr. Alvarado. Coronavirus screen: fever. Coronavirus screen: At this time, the client does not indicate any symptoms associated with coronavirus-19. Ebola Screen: Patient denies travel to an Ebola-affected area in the 21 days before illness onset. Initial Sepsis Screen: Does the patient meet any 2 criteria? HR > 90 bpm. Does the patient have a suspected source of infection? Yes: Catheter related infection (Colon/dialysis/PICC/central line). Risk Assessment: Do you want to hurt yourself or someone else? Patient reports no desire to harm self or others. Onset of symptoms was December 17, 2020. 17:51 Method Of Arrival: EMS: [facility] tw2 17:51 Acuity: JAQUI 2 tw2 18:04 Note pt presented with colon in place dates 12/15/20, urine noted in bag, colon placed tw2 below level of the bladder. Triage Assessment: 17:55 General: Appears in no apparent distress. Behavior is calm, cooperative, appropriate tw2 for age. Pain: Denies pain. EENT: No signs and/or symptoms were reported regarding the EENT system. Neuro: Level of Consciousness is awake, alert, obeys commands, Oriented to person, place, time, situation. Cardiovascular: Capillary refill < 3 seconds Patient's skin is warm and dry. Respiratory: Airway is patent Respiratory effort is even, unlabored, Respiratory pattern is regular, symmetrical. GI: No signs and/or symptoms were reported involving the gastrointestinal system. Abdomen is round non-distended. : Reports bladder sx Monday, colon in place, dated 12/15/20 on colon collection bag. Derm: Skin temperature is hot. Musculoskeletal: Range of motion: intact in all extremities. Historical: - Allergies: 18:04 adhesive tape; tw2 18:04 Aspirin; tw2 18:04 Codeine; tw2 18:04 erythromycin base; tw2 18:04 Latex, Natural Rubber; tw2 18:04 PENICILLINS; tw2 18:04 Peanut; tw2 - PMHx: 18:04 Hypertension; tw2 19:06 Dementia; tw2 - Immunization history:: Adult Immunizations. - Social history:: Smoking status: . Screenin:15 Abuse screen: Denies threats or abuse. Nutritional screening: No deficits noted. tw2 Tuberculosis screening: No symptoms or risk factors identified. Fall Risk Secondary diagnosis (15 points) impaired mobility. Assessment: 18:02 Reassessment:. Cardiovascular: Rhythm is provider notified, ekg performed, see vs notes.tw2 18:17 Reassessment: see triage assessment. tw2 18:34 Reassessment: pts HOME ph# [phone] - Call with updates. tw2 18:49 Reassessment: Patient appears in no apparent distress at this time. No changes from tw2 previously documented assessment. Patient and/or family updated on plan of care and expected duration. Pain level reassessed. 19:30 General: Appears in no apparent distress. Behavior is calm, cooperative, appropriate ea for age. Pain: Denies pain. Neuro: Level of Consciousness is awake, alert, Oriented to person. Respiratory: Airway is patent Respiratory effort is even, unlabored, Respiratory pattern is regular, symmetrical. Derm: Skin is pink, warm \T\ dry. Vital Signs: 17:51 BP 146 / 57; Pulse 90; Resp 20; Temp 99.1; Pulse Ox 99% on 2 lpm NC; Weight 70.31 kg tw2 (R); Height 5 ft. 2 in. (157.48 cm); Pain 0/10; 18:02 Pulse 185; tw2 18:02 BP 143 / 58; Pulse 86; Resp 19; Pulse Ox 99% on 2 lpm NC; tw2 18:49 Temp 98.8(TE); tw2 18:49 BP 129 / 90; Pulse 90; Resp 18; Pulse Ox 99% on 2 lpm NC; tw2 21:47 BP 120 / 50; Pulse 81; Resp 18; Temp 98.6; Pulse Ox 95% ; ea 17:51 Body Mass Index 28.35 (70.31 kg, 157.48 cm) tw2 18:02 provider notified of HR, EKG performed, provider ordered vagal maneuvar to convert pt tw2 at this time, providers student at bedside at this time ED Course: 17:51 Patient arrived in ED. tw2 17:51 Call light in reach. Side rails up X2. vehicle monitor technician on. Pulse ox on. NIBP on. tw2 17:53 Mauricio Turner PA is PHCP. jr8 17:53 Camron Oakley MD is Attending Physician. jr8 17:58 Triage completed. tw2 18:04 Arm band placed on. tw2 18:06 EKG done, by ED staff, reviewed by Mauricio SEXTON. tw2 18:14 Basic Metabolic Panel Sent. tw2 18:14 CPK Sent. tw2 18:34 Trinity Mensah RN is Primary Nurse. tw2 18:49 Chest Single View XRAY In Process Unspecified. EDMS 19:03 Maintain EMS IV. Dressing intact. Good blood return noted. Site clean \T\ dry. Gauge \T\ tw 2 site: LEFT ac 18 g. 19:06 Report given to LUNA Mejia. tw2 19:42 Primary Nurse role handed off by Trinity Mensah, LUNA mw2 20:09 Darlyn Shannon, LUNA is Primary Nurse. ea 20:56 Haily Lloyd MD is Hospitalizing Provider. jr8 21:45 No provider procedures requiring assistance completed. Patient admitted, IV remains in ea place. Administered Medications: 18:13 Drug: NS 0.9% 1000 ml Route: IV; Rate: 1000 ml; Site: left antecubital; tw2 18:46 Follow up: Response: No adverse reaction; IV Status: Completed infusion; IV Intake: tw2 1000ml 20:57 Not Given (Physician Discretion): Rocephin 1 grams IV at calculated rate once; Given jr8 slow IV push per pharmacy instructions 20:57 Not Given (Physician Discretion): Zithromax 500 mg IVPB once over 1 hrs; mix in 250 mL jr8 NS 21:22 Drug: Potassium Chloride 20 mEq Route: PO; ea 21:45 Follow up: Response: No adverse reaction ea 21:22 Drug: LevaQUIN 500 mg Volume: 100 ml; Route: IVPB; Infused Over: 60 mins; Site: right ea hand; Intake: 18:46 IV: 1000ml; Total: 1000ml. tw2 Outcome: 20:57 Decision to Hospitalize by Provider. jr8 21:47 Instructed on the need for admit, Demonstrated understanding of instructions. ea 22:21 Admitted to Med/surg accompanied by tech, via stretcher, on monitor, with chart, Report ea called to Report given to receiving nurse 22:21 Condition: stable 22:57 Patient left the ED. ea Signatures: Dispatcher [employer] EDMS Mauricio Turner PA PA jr8 Wise, Tara, RN RN tw2 Darlyn Shannon RN RN Gio Contreras mw2
--- NOTE | 2020-12-17 20:58 | EDPHYS ---
Physician Documentation [facility] Name: Michaela Anguiano Age: 89 yrs Sex: Female : 1930 Arrival Date: 12/17/2020 Time: 17:51 Bed 13 Private MD: ED Physician Camron Oakley HPI: 12/17 18:01 This 89 yrs old Female presents to ER via EMS with complaints of Elevated HR, jr8 SVT. 18:01 Onset: The symptoms/episode began/occurred suddenly, today. Associated signs and jr8 symptoms: Pertinent positives: fever. Bladder prolapse surgery a few weeks ago. Reports feeling weak today. Her family members called EMS because she had a fever. EMS found her HR elevated with SVT. . Historical: - Allergies: 18:04 adhesive tape; tw2 18:04 Aspirin; tw2 18:04 Codeine; tw2 18:04 erythromycin base; tw2 18:04 Latex, Natural Rubber; tw2 18:04 PENICILLINS; tw2 18:04 Peanut; tw2 - PMHx: 18:04 Hypertension; tw2 19:06 Dementia; tw2 - Immunization history:: Adult Immunizations. - Social history:: Smoking status: . ROS: 18:03 Eyes: Negative for injury, pain, redness, and discharge, Cardiovascular: Negative for jr8 chest pain, palpitations, and edema, Respiratory: Negative for shortness of breath, cough, wheezing, and pleuritic chest pain, Abdomen/GI: Negative for abdominal pain, nausea, vomiting, diarrhea, and constipation. 18:03 : Positive for urinary symptoms, Colon present. 18:03 Skin: 18:03 All other systems are negative. Exam: 18:05 Head/Face: Normocephalic, atraumatic. Chest/axilla: Normal chest wall appearance and jr8 motion. Nontender with no deformity. No lesions are appreciated. Cardiovascular: Regular rate and rhythm with a normal S1 and S2. No gallops, murmurs, or rubs. Normal PMI, no JVD. No pulse deficits. Respiratory: Lungs have equal breath sounds bilaterally, clear to auscultation and percussion. No rales, rhonchi or wheezes noted. No increased work of breathing, no retractions or nasal flaring. Abdomen/GI: Soft, non-tender, with normal bowel sounds. No distension or tympany. No guarding or rebound. No evidence of tenderness throughout. Skin: Warm, dry with normal turgor. Normal color with no rashes, no lesions, and no evidence of cellulitis. 18:05 : Bladder: S/P bladder surgery and Colon present, a colon is noted. 18:05 Skin: Warm. Vital Signs: 17:51 BP 146 / 57; Pulse 90; Resp 20; Temp 99.1; Pulse Ox 99% on 2 lpm NC; Weight 70.31 kg tw2 (R); Height 5 ft. 2 in. (157.48 cm); Pain 0/10; 18:02 Pulse 185; tw2 18:02 BP 143 / 58; Pulse 86; Resp 19; Pulse Ox 99% on 2 lpm NC; tw2 18:49 Temp 98.8(TE); tw2 18:49 BP 129 / 90; Pulse 90; Resp 18; Pulse Ox 99% on 2 lpm NC; tw2 21:47 BP 120 / 50; Pulse 81; Resp 18; Temp 98.6; Pulse Ox 95% ; ea 17:51 Body Mass Index 28.35 (70.31 kg, 157.48 cm) tw2 18:02 provider notified of HR, EKG performed, provider ordered vagal maneuvar to convert pt tw2 at this time, providers student at bedside at this time MDM: 18:01 Patient medically screened. jr8 18:10 Data reviewed: vital signs, nurses notes, EMS record, lab test result(s), cardiac jr8 enzymes, CBC, electrolytes, urinalysis, EKG. Data interpreted: potline monitor: rate is 70 beats/min, rhythm is normal sinus rhythm, with episodes of SVT up to 170. Patient able to Valsalva to NSR, Pulse oximetry: on room air is 99 %. Interpretation: normal. 19:04 Special discussion: Spoke with to ask about patients normal mentation. He jr8 reports she has minor dementia and will ask questions multiple times. . 20:25 Special discussion:. ED course: Patient has had subsequent episodes of SVT with chest jr8 pain present. Possible concern for pneumonia based on fever and CXR. Discussed case with Dr. Lloyd who agrees and wants to admit . 20:42 Special discussion: Asked patient what her reaction to PCN is. She did not know. I jr8 verified that she is allergic to PCN and she denied having that allergy. I asked her what all her allergies were and she denied having any. I attempted to call to confirm her allergies and there was no answer for 4 attempts. . 20:58 Counseling: I had a detailed discussion with the patient and/or guardian regarding: the 8 historical points, exam findings, and any diagnostic results supporting the discharge/admit diagnosis, lab results, radiology results, the need for further work-up and treatment in the hospital. 12/17 18:03 Order name: Basic Metabolic Panel [facility] 12/17 18:03 Order name: Blood Culture Adult (2) [facility] 12/17 18:03 Order name: CBC with Diff; Complete Time: 18:49 [facility] 12/17 18:03 Order name: CPK [facility] 12/17 18:03 Order name: Lactate; Complete Time: 18:49 [facility] 12/17 18:03 Order name: LFT's; Complete Time: 18:49 [facility] 12/17 18:03 Order name: Procalcitonin; Complete Time: 18:57 [facility] 12/17 18:03 Order name: Protime (+inr); Complete Time: 18:49 [facility] 12/17 18:03 Order name: Ptt, Activated; Complete Time: 18:49 [facility] 12/17 18:03 Order name: Urine Microscopic Only; Complete Time: 20:14 [facility] 12/17 18:03 Order name: Basic Metabolic Panel; Complete Time: 18:49 EDMS 12/17 18:04 Order name: Creatine Phosphokinase; Complete Time: 18:49 EDMS 12/17 18:03 Order name: Chest Single View XRAY; Complete Time: 19:07 [facility] 12/17 18:03 Order name: Cardiac monitoring; Complete Time: 18:13 [facility] 12/17 18:03 Order name: EKG - Nurse/Tech; Complete Time: 18:14 [facility] 12/17 18:03 Order name: IV Saline Lock - Large Bore; Complete Time: 18:14 [facility] 12/17 18:03 Order name: Labs collected and sent; Complete Time: 18:14 [facility] 12/17 18:03 Order name: O2 Per Protocol; Complete Time: 18:14 [facility] 12/17 18:03 Order name: O2 Sat Monitoring; Complete Time: 18:14 jr8 12/17 19:21 Order name: COVID-19/FLU A+B; Complete Time: 19:24 EDMS 12/17 21:01 Order name: CONS Physician Consult EDNY Administered Medications: 18:13 Drug: NS 0.9% 1000 ml Route: IV; Rate: 1000 ml; Site: left antecubital; tw2 18:46 Follow up: Response: No adverse reaction; IV Status: Completed infusion; IV Intake: tw2 1000ml 20:57 Not Given (Physician Discretion): Rocephin 1 grams IV at calculated rate once; Given jr8 slow IV push per pharmacy instructions 20:57 Not Given (Physician Discretion): Zithromax 500 mg IVPB once over 1 hrs; mix in 250 mL jr8 NS 21:22 Drug: Potassium Chloride 20 mEq Route: PO; ea 21:45 Follow up: Response: No adverse reaction ea 21:22 Drug: LevaQUIN 500 mg Volume: 100 ml; Route: IVPB; Infused Over: 60 mins; Site: right ea hand; Disposition: 12/18 06:05 Co-signature as Attending Physician, Camron Oakley MD I agree with the assessment and kdr plan of care. Disposition: 12/17/20 20:57 Hospitalization ordered by Haily Lloyd for Inpatient Admission. Preliminary diagnosis are Supraventricular tachycardia, Chest pain, unspecified, Fever, unspecified, Pneumonia due to other specified bacteria. - Bed requested for Telemetry/MedSurg (Inpatient). - Status is Inpatient Admission. ea - Condition is Stable. - Problem is new. - Symptoms have improved. Signatures: Dispatcher [employer] EDNY Camron Oakley MD MD [facility] Mauricio Turner PA PA jr8 Juany Seo, LUNA RN Trinity Alarcon RN RN [facility] Darlyn Shannon RN RN ea Corrections: (The following items were deleted from the chart) 12/17 18:34 18:04 CORONAVIRUS+MR.LAB.BRZ ordered. EDNY EDNY 18:35 18:04 Influenza Screen (A \T\ B)+BA.LAB.BRZ ordered. EDNY EDNY 18:46 18:03 Accucheck ordered. jr8 tw2 20:58 20:25 ED course: Patient has had subsequent episodes of SVT with chest pain present. jr8 Patient to be admitted for observation. . jr8 21:27 20:57 Hospitalization Ordered by A Prema RAMOS for Inpatient Admission. Preliminary cg diagnosis is Supraventricular tachycardia; Chest pain, unspecified; Fever, unspecified; Pneumonia due to other specified bacteria. Bed requested for Telemetry/MedSurg (Inpatient). Status is Inpatient Admission. Condition is Stable. Problem is new. Symptoms have improved. jr8 22:57 21:27 12/17/2020 20:57 Hospitalization Ordered by A Prema RAMOS for Inpatient Admission. ea Preliminary diagnosis is Supraventricular tachycardia; Chest pain, unspecified; Fever, unspecified; Pneumonia due to other specified bacteria. Bed requested for Telemetry/MedSurg (Inpatient). Status is Inpatient Admission. Condition is Stable. Problem is new. Symptoms have improved. cg
[2020-12-17] MEDS ORDERED: Levofloxacin500mg IV 500 MG/100 ML BAG IV ONE (21:19)
[2020-12-17] MEDS ORDERED: ONDANSETRON 4 MG/2 ML VIAL IV PRN (22:36)
[2020-12-18 00:03] VITALS: BMI 25.3
[2020-12-18] MEDS: NA CHLORIDE 0.9% 1,000 ML IV SCH ×2 (00:38→11:42)
[2020-12-18] MEDS: ACETAMINOPHEN 500 MG TAB PO PRN ×2 (04:18→18:22)
[2020-12-18 06:35] LABS: Absolute Lymphocytes (CBC) 0.6 K/uL (0.7-4.9); Basophils % 0.3 % (0-1.3); Hematocrit 32.1 % (36.0-45.0); Lymphocytes % 11.8 % (15.3-44.8); MPV 7.9 fL (7.6-11.3); RBC Red Blood Cell Count 3.49 M/uL (3.86-4.86)
[2020-12-18 06:52] LABS: BUN Blood Urea Nitrogen 6 mg/dL (7-18); Bicarbonate 28 mmol/L (21-32); Glucose Level 113 mg/dL (74-106); NT PRO-BNP 1569 pg/mL (<450); Potassium 3.8 mmol/L (3.5-5.1); Sodium Level 143 mmol/L (136-145)
[2020-12-18] MEDS ORDERED: PNEUMOCOCCAL VACCINE 0.5 ML IMVAC ONE (11:00)
[2020-12-18] MEDS ORDERED: ENOXAPARIN 40 MG/0.4 ML SQ SCH (17:00)
[2020-12-18] MEDS ORDERED: NA CHLORIDE 0.9% 1,000 ML IV SCH (17:00)
--- NOTE | 2020-12-18 17:09 | RAD REPORT ---
EXAM DESCRIPTION: CT - Chest For Pe Angio - 12/18/2020 4:37 pm CLINICAL HISTORY: Chest pain. rule out PE COMPARISON: Chest Single View dated 12/17/2020 TECHNIQUE: CT angiogram of the pulmonary arteries was performed with MIP. All CT scans are performed using dose optimization technique as appropriate and may include automated exposure control or mA/KV adjustment according to patient size. FINDINGS: No evidence of pulmonary thromboembolism. No acute aortic finding demonstrated. Mild interstitial pulmonary edema with atelectasis in both lung bases. Small bilateral pleural effusions. No concerning bony finding. IMPRESSION: No evidence of pulmonary thromboembolism. Mild CHF versus volume overload pattern noted.
[2020-12-18] MEDS ORDERED: FUROSEMIDE 20 MG/ 2ML VIAL IV ONE (18:00)
[2020-12-18] MEDS ORDERED: Levofloxacin500mg IV 500 MG/100 ML BAG IV SCH (21:00)
[2020-12-18] MEDS: METOPROLOL XL 25 MG TAB PO SCH (21:25)
[2020-12-19] MEDS ORDERED: HALOPERIDOL LACT 5 MG/ML INJ IV PRN (03:49)
[2020-12-19] MEDS ORDERED: LORazepam 2 MG/ML VIAL IV PRN (03:50)
[2020-12-19] MEDS ORDERED: HALOPERIDOL LACT 5 MG/ML INJ ONE (04:10)
[2020-12-19] MEDS: ACETAMINOPHEN 500 MG TAB PO PRN ×2 (06:31→11:54)
[2020-12-19 06:47] LABS: Magnesium 2.3 mg/dL (1.8-2.4); Potassium 3.3 mmol/L (3.5-5.1)
[2020-12-19 06:49] LABS: Thyroid Stimulating Hormone 5.87 uIU/mL (0.360-3.740)
[2020-12-19 07:34] LABS: Absolute Lymphocytes (CBC) 0.9 K/uL (0.7-4.9); Basophils % 0.3 % (0-1.3); Hematocrit 33.9 % (36.0-45.0); Lymphocytes % 14.7 % (15.3-44.8); MPV 7.8 fL (7.6-11.3); RBC Red Blood Cell Count 3.72 M/uL (3.86-4.86)
[2020-12-19] MEDS ORDERED: FUROSEMIDE 20 MG/ 2ML VIAL IV SCH (09:00)
[2020-12-19] MEDS: METOPROLOL XL 25 MG TAB PO SCH (09:17)
[2020-12-19] MEDS ORDERED: POTASSIUM 25 MEQ EFFERV TAB PO ONE (09:48)
[2020-12-19 12:34] VITALS: O2SAT 93
[2020-12-19 14:47] VITALS: BP 141/63; TEMP 97.7
[2020-12-20] MEDS ORDERED: POTASSIUM 25 MEQ EFFERV TAB PO ONE (09:48)
--- NOTE | 2020-12-20 18:26 | CON ---
Date of Consultation: 12/18/2020 Reason For Consultation: Postop patient with shortness of breath, low sats, and possible fever. History Of Present Illness: The patient is an 89-year-old female, postop day #2, got admitted for sh ortness of breath. She was brought via ambulance for an extremely elevated heart rate in the 200s, w as found possibly in SVT. Then later, she was also found to have shortness of breath and sats around 91-92%. She had a temperature of T-max 101.5 in the ER as noted. Then, she was evaluated and taken to the floor. She was admitted for workup on her low oxygen saturations. She had a chest x-ray brittany t showed bilateral interstitial moderate lung opacities, right greater than the left. Her white cell count was 5.0 and there was a mild shift to the left with neutrophil count at 75%. After she was ozzie lused, her heart rate had come down to normal range and she was also coronavirus tested and negative. This is a patient who has denied any vaginal bleeding, pelvic pain, had mild lower urinary tract sy mptoms, but her Delgado was in place. Past Medical History: Significant for: 1.Moderate Alzheimer's dementia. 2.Past history of hypertension and atrial fibrillation, which were apparently resolved prior to the surgery and the patient not on any antihypertensives or anticoagulants. Past Surgical History: Most recently significant for vaginal colpocleisis and mid urethral sling and perineorrhaphy for her significant stage III prolapse. Social History: Lives with her at home. Visiting nurse was arranged for caring for her Fole y catheter as well as making sure that the patient's vitals were checked as her is also older and has difficulty taking care of her. Physical Examination: Vital Signs: Again when I saw her, afebrile, pulse ox still 92%, heart rate was less than 100, and s he was afebrile. Her temperature was 98. On the floor after the patient was transferred, no fevers were noted reviewing her vitals chart. Her white cell count for the day was 5.2. No left shift. He r urine was tested and negative on the UA. General: As I entered the room, the patient was lying on her bed and she appeared to be agitated and sad, was able to identify me, my name, and address me; however, she was not oriented to place or jeff e. She did not remember if she already had her procedure. However, good communication, good eye con tact, and no other delirium. Abdomen: Soft. Pelvic: Urethra unremarkable. Delgado in place. No evidence of any bleeding. The sling incision is completely unremarkable. No erythema or tenderness. Vaginal incision appropriately tender for her p ostop day, but no perineal tenderness, erythema, and no evidence of any signs and symptoms of inflamm ation or infection. EXTREMITIES: No edema or calf tenderness. Pulses regular. Assessment And Plan: 1.Postop day #3 from vaginal colpocleisis and mid urethral sling. The patient without any surgical complications and normal course for the postoperative period. 2.Preoperative evidence of Escherichia coli, acute bacterial cystitis. This has been treated with M acrobid and her urinalysis at this current time was negative, so I believe that she does not have any risk of bacteremia from an uncontrolled bacterial infection of the bladder. Plan is to continue her Levaquin that she has been started in the hospital once a day and that can be continued when she goe s home or she can be switched over to Macrobid and complete her duration. 3.Delgado drainage. She needs the catheter out and a voiding trial, so plan was to do that the follow ing morning and if she passes a voiding trial, discharge home without a catheter. 4.History of supraventricular tachycardia. Spoke to Dr. Lloyd and Dr. Lloyd is taking great care of er heart. Its rhythm is controlled at this time and he will continue her rate and rhythm controlling medication. 5.The patient possibly has congestive heart failure or pulmonary edema from fluid shifts in the mian operative period. So, she was being given a diuretic in her Delgado to help her out with monitoring of the I's and O's. From my standpoint, she can be discharged after the voiding trial tomorrow when sh jamison is medically stable and she will be followed in the office on Monday as well as she has a regular r outine postop appointment at 1 week and 6 weeks. Continue visiting nurses if possible to help with er dementia and the last one as her dementia appears to be slightly worse with her dementia than at her baseline on this patient for at least 8 years and she has gotten much worse compared to e moi her baseline preop. TONA/ERLIN Voice ID: [id number] Report ID: [id number]
--- NOTE | 2021-01-13 03:44 | DS ---
Date of Discharge: 12/19/2020 Disposition: Discharged to go home. Physical Examination: HEENT: Unremarkable. Lungs: Clear to auscultation. Heart: Sounds normal. Abdomen: Soft. Bowel sounds normal. No guarding, rigidity, tenderness, or distention. Extremities: No leg edema. Discharge Medications And Instructions: 1.Follow up with Dr. Miranda on Monday and the patient to call her office to schedule appointment. 2.Follow up at my office on Monday at 9 a.m. and the patient to bring all her medication bottles wi th her at the time of office visit. 3.New medication includes furosemide 20 mg p.o. daily. 4.Potassium chloride 10 mEq p.o. daily. 5.Metoprolol succinate 25 mg p.o. daily. Final Diagnoses: 1.Pulmonary edema. 2.Anemia. 3.Hypokalemia. 4.Hypertension. 5.Mixed hyperlipidemia. 6.Supraventricular tachycardia. 7.Gastroesophageal reflux disease. 8.Allergic rhinitis. Hospital Course: An 89-year-old female patient admitted to the hospital under my service after she c franc into emergency room with complaints of palpitation feeling. Please see dictated H and P for more information. The patient was evaluated in the ER and admitted to the hospital. Cardiac enzymes wer e negative. Chest x-ray showed some changes of pulmonary edema. CAT scan of the chest per PE protoc ol showed no evidence of pulmonary embolism, but evidence of congestive heart failure was noted. Her overall condition remained stable. COVID-19 test was negative. Potassium was low which was address ed with help of electrolyte replacement protocol. Overall, her condition remained stable. She was d ischarged to go home in stable and improved condition with above-mentioned medication and instruction . TIFFANY/MODL Voice ID: [id number] Report ID: [id number]
--- NOTE | 2021-01-13 08:29 | HP ---
Date of Admission: 12/18/2020 Chief Complaint: Heart racing feeling History Of Present Illness: This is an 89-year-old female patient, who lives at home with her , came into emergency room with complaints of rapid heartbeat feeling and feeling of fever at home. She had recently surgery done by Dr. Miranda. She came into emergency room. After she was evaluated in the ER, she was admitted to the hospital. When I saw her, she denied any chest pain, shortness of breath. No nausea, vomiting, or diarrhea. Medications: List reviewed. Review of Systems: Cardiovascular: As mentioned above. Constitutional: As mentioned above. All other systems reviewed and negative. Allergies: PER OUTPATIENT RECORDS, SHE IS ALLERGIC TO ASPIRIN, NONSTEROIDAL ANTI-INFLAMMATORY MEDICATION; PENICILLIN CAUSING RASH; CEPHALEXIN CAUSING ITCHING; CIPRO, DETAILS UNKNOWN; ERYTHROMYCIN, NAUSEA, VOMITING; CLINDAMYCIN, DIARRHEA AND VOMITING; GEMFIBROZIL, MYALGIA; CODEINE, DETAILS UNKNOWN; HYDROCODONE, DETAILS UNKNOWN; BENADRYL CAUSES RASH AND ITCHING; MYRBETRIQ, MEMORY LOSS; AND ZYRTEC, DETAILS UNKNOWN. Past Medical History: Significant for allergic rhinitis, hypothyroidism, paroxysmal atrial fibrillation, supraventricular tachycardia, mitral regurgitation, mixed hyperlipidemia, gastroesophageal reflux disease. Past Surgical History: Cataract surgery, cholecystectomy, appendectomy, hysterectomy, bladder suspension. Family History: Father had tuberculosis. Mother had myocardial infarction. Social History: Negative for smoking or alcohol use. Physical Examination: VITAL SIGNS: When she first came into emergency room, temperature 99.1, pulse 90, respiratory rate 20, blood pressure 146/57, oxygen saturation 99%. Height 5 feet 2 inches, weight 138 pounds. General: Awake, alert, oriented, not in distress. HEENT: Head atraumatic, normocephalic. Conjunctivae nonerythematous. Sclerae white. Mouth, no thrush or edema noted. Ears/Nose, no mass, lesion, discharge noted. Neck: Supple. No JVD, lymph nodes, bruit, thyromegaly noted. Lungs: Bilateral good equal air entry. Clear to auscultation. No rhonchi. No rales. Heart: Normal heart sounds. No murmur or gallop. Abdomen: Soft. Bowel sounds normal. No guarding, rigidity, tenderness, mass, hepatosplenomegaly, distention, or bruit noted. Extremities: No leg edema. No calf tenderness. Skin: No rash, ulcer, cellulitis. Lymphatics: No lymph node enlargement in neck, supraclavicular, infraclavicular region. Neuro: No focal neurological deficit. Chest: Unremarkable. External Genitalia: Deferred. Rectal: Deferred. Laboratory Data: Yesterday, white count 5.6, hemoglobin 11.7, platelets 179. This morning, white count 5, hemoglobin 11.1, platelets 156. INR 1.03. Yesterday, sodium 140, potassium 3.4, chloride 107, bicarb 27, BUN 9, creatinine 0.58, glucose 115. Liver function tests unremarkable. Procalcitonin less than 0.05. This morning, sodium 143, potassium 3.8, chloride 111, bicarb 28, BUN 6, creatinine 0.52, glucose 113. Urinalysis with less than 5 RBC, less than 5 WBC, bacteria less than 20. Chest x-ray noted bilateral interstitial lung opacity, greater on the right. This may indicate viral pneumonia or mild pulmonary edema. Impression: 1. Supraventricular tachycardia. 2. Pulmonary edema. 3. Hypokalemia. 4. Anemia. 5. Hypertension. 6. Hypothyroidism. 7. Hyperlipidemia, mixed. 8. Allergic rhinitis. 9. Gastroesophageal reflux disease. Plan: Admit the patient to the hospital for further evaluation and management of this problem. We will go ahead and consult Dr. Miranda considering the patient had recent surgery and low-grade fever. Details and plan of treatment discussed with her. We will monitor on telemetry. We will get a CAT scan of the chest per PE protocol and I will see her tomorrow for followup. Replace potassium per order. I will discuss details with her. She has had a history of supraventricular tachycardia in the past, which is nothing new. Her COVID-19 test and influenza A and B test are negative. TIFFANY/MODL Voice ID: [id number]
== END 2020-12-19 14:58 | disposition home or self-care (01) | DRG 310 ==
LOC: ER 17:44 → ERHOLD 21:00 → 2ND 22:22
PROVIDERS: ADMIT Internal Medicine; ATTEND Internal Medicine
DX: I47.1 Supraventricular tachycardia (principal); F03.90 Unspecified dementia, unspecified severity, without behavioral disturbance, psychotic disturbance, mood disturbance, and anxiety; I10 Essential (primary) hypertension; Z88.1 Allergy status to other antibiotic agents; Z91.040 Latex allergy status; Z88.5 Allergy status to narcotic agent; Z91.010 Allergy to peanuts; Z88.0 Allergy status to penicillin; Z91.048 Other nonmedicinal substance allergy status; Z20.822 Contact with and (suspected) exposure to COVID-19
CPT/HCPCS: 0240U; 36415; 71045; 71275; 80048; 80076; 81003; 81015; 82550; 83605; 83735; 83880; 84145; 84439; 84443; 85025; 85610; 85730; 86850; 86900; 86901; 87040; 87077; 87086; 87088; 87186; 93005; 94760; 96361; 96374; 99285; J0690; J1100; J1630; J1650; J1940; J2175; J2405; J2704; J3010; J7030; J7120; Q9967; U0002

== ENCOUNTER 2020-12-20 18:13 | Observation (INO) | payer OTHER ==
[2020-12-20 19:12] LABS: Absolute Lymphocytes (CBC) 0.3 K/uL (0.7-4.9); Basophils % 0.1 % (0-1.3); Hematocrit 37.8 % (36.0-45.0); Lymphocytes % 2.6 % (15.3-44.8); MPV 7.7 fL (7.6-11.3); RBC Red Blood Cell Count 4.18 M/uL (3.86-4.86)
[2020-12-20 19:15] LABS: Protime INR 1.01
[2020-12-20 19:31] LABS: ALT/SGPT 16 U/L (12-78); AST/SGOT 15 U/L (15-37); Albumin 3.4 g/dL (3.4-5.0); Alkaline Phosphatase 48 U/L (45-117); BUN Blood Urea Nitrogen 20 mg/dL (7-18); Bicarbonate 28 mmol/L (21-32); Bilirubin Direct 0.2 mg/dL (0-0.2); Bilirubin Total 0.8 mg/dL (0.2-1.0); Glucose Level 149 mg/dL (74-106); Magnesium 1.9 mg/dL (1.8-2.4); NT PRO-BNP 553 pg/mL (<450); Potassium 3.3 mmol/L (3.5-5.1); Protein, Total 6.7 g/dL (6.4-8.2); Sodium Level 140 mmol/L (136-145); Troponin (Emerg Dept Use Only) < 0.02 ng/mL (0.0-0.045)
[2020-12-20] MEDS ORDERED: ADENOSINE 6 MG/ 2ML VIAL IV ONE (19:41)
[2020-12-20] MEDS ORDERED: NA CHLORIDE 0.9% 500 ML ONE (19:56)
--- NOTE | 2020-12-20 19:58 | RAD REPORT ---
EXAM DESCRIPTION: RAD - Chest Single View - 12/20/2020 7:11 pm CLINICAL HISTORY: CHEST PAIN Chest pain. COMPARISON: Chest Single View dated 12/17/2020; Chest Pa And Lat (2 Views) dated 11/03/2020; Chest Sin gle View dated 06/30/2019; Chest Single View dated 06/24/2019; Chest For Pe Angio dated 12/18/2020 FINDINGS: Portable technique limits examination quality. The lungs are grossly clear. Small bilateral pleural effusions. The heart is normal in size. No displ aced fractures. IMPRESSION: Small bilateral pleural effusions.
--- NOTE | 2020-12-20 20:00 | EDPHYS ---
Physician Documentation [facility] Name: Michaela Anguiano Age: 89 yrs Sex: Female : 1930 Arrival Date: 12/20/2020 Time: 18:19 Bed 8 Private MD: ED Physician Julio Perera HPI: 12/20 19:07 This 89 yrs old Female presents to ER via EMS with complaints of chest pain. [facility] 19:07 The patient or guardian reports chest pain that is located primarily in the substernal [facility] area. Onset: just prior to arrival. The pain does not radiate. The chest pain is described as aching. Duration: The patient or guardian reports a single episode, that is now resolved. Modifying factors: The symptoms are alleviated by nothing. the symptoms are aggravated by nothing. This is an 89 year old female with a history of htn, dementia that presents to the ED with complaints of chest pain beginning while at the grocery store later today. Patient states the pain has now resolved. Denies chest pain or shortness of breath currently. Took COVID 19 vaccine this morning. Recently hospitalized for SVT, . Historical: - Allergies: 18:24 adhesive tape; jd3 18:24 Aspirin; jd3 18:24 Codeine; jd3 18:24 erythromycin base; jd3 18:24 Latex, Natural Rubber; jd3 18:24 Peanut; jd3 18:24 PENICILLINS; jd3 - Home Meds: 18:24 Osphena oral oral [Active]; Nitrofurantoin Macrocrystal Oral [Active]; pantoprazole jd3 oral oral [Active]; - PMHx: 18:24 Dementia; Hypertension; jd3 - Immunization history:: Adult Immunizations up to date. - Social history:: Smoking status: Patient denies any tobacco usage or history of. ROS: 19:07 Constitutional: Negative for fever, chills, and weight loss. jmm 19:07 Respiratory: Negative for shortness of breath, cough, wheezing, and pleuritic chest pain, Neuro: Negative for headache, weakness, numbness, tingling, and seizure. 19:07 Cardiovascular: Positive for chest pain. 19:07 All other systems are negative. Exam: 19:07 Constitutional: This is a well developed, well nourished patient who is awake, alert, jmm and in no acute distress. Head/Face: atraumatic. Eyes: EOMI, no conjunctival erythema appreciated ENT: Moist Mucus Membranes Neck: Trachea midline, Supple Chest/axilla: Normal chest wall appearance and motion. Cardiovascular: Regular rate and rhythm. No edema appreciated Respiratory: Normal respirations, no respiratory distress appreciated Abdomen/GI: Non distended, soft Back: Normal ROM Skin: General appearance color normal MS/ Extremity: Moves all extremities, no obvious deformities appreciated, no edema noted to the lower extremities 19:07 Neuro: Orientation: is normal, Mentation: is normal. 19:07 Psych: Behavior/mood is pleasant, cooperative. Vital Signs: 18:23 BP 124 / 95; Pulse 122; Resp 20 S; Temp 98.2(O); Pulse Ox 99% on R/A; Weight 63.5 kg jd3 (R); Height 5 ft. 1 in. (154.94 cm) (R); Pain 5/10; 18:58 BP 111 / 59; Pulse 108; Resp 19 S; Pulse Ox 100% on R/A; jd3 19:20 BP 93 / 56; Pulse 99; Resp 17; Pulse Ox 99% ; rr5 20:00 BP 127 / 65; Pulse 93; Resp 17; Pulse Ox 98% ; rr5 20:30 BP 121 / 56; Pulse 100; Resp 15; Temp 98; Pulse Ox 97% ; rr5 18:23 Body Mass Index 26.45 (63.50 kg, 154.94 cm) jd3 MDM: 18:30 Patient medically screened. jm 19:57 The patient was not given aspirin in the Emergency Department. Data reviewed: vital [facility] signs, nurses notes, lab test result(s), EKG, radiologic studies, plain films. ED course: I discussed the patient with Dr. Lloyd whom advises metoprolol 25 mg BID and cardiology consult. No IVF. 12/20 18:30 Order name: Basic Metabolic Panel; Complete Time: 19:32 [facility] 12/20 18:30 Order name: CBC with Diff; Complete Time: 20:20 [facility] 12/20 18:30 Order name: LFT's; Complete Time: 19:32 [facility] 12/20 18:30 Order name: Magnesium; Complete Time: 19:32 [facility] 12/20 18:30 Order name: NT PRO-BNP; Complete Time: 19:32 [facility] 12/20 18:30 Order name: PT-INR; Complete Time: 19:31 jm 12/20 18:30 Order name: Troponin (emerg Dept Use Only); Complete Time: 19:32 jm 12/20 20:05 Order name: Basic Metabolic Panel EDPR 12/20 20:05 Order name: Basic Metabolic Panel EDPR 12/20 20:05 Order name: CBC with Automated Diff EDMS 12/20 20:05 Order name: CBC with Automated Diff EDMS 12/20 20:05 Order name: Troponin I EDPR 12/20 20:05 Order name: Troponin I EDPR 12/20 20:05 Order name: Troponin I EDPR 12/20 18:30 Order name: XRAY Chest (1 view); Complete Time: 20:04 [facility] 12/20 18:30 Order name: EKG; Complete Time: 18:30 [facility] 12/20 18:30 Order name: Cardiac monitoring; Complete Time: 18:57 [facility] 12/20 18:30 Order name: EKG - Nurse/Tech; Complete Time: 18:57 [facility] 12/20 18:30 Order name: IV Saline Lock; Complete Time: 18:57 [facility] 12/20 20:05 Order name: CONS Physician Consult EDPR 12/20 20:05 Order name: Consistent Carb (ADA) 1800 Raffi EDPR 12/20 20:05 Order name: EKG Electrocardiogram EDPR 12/20 20:05 Order name: EKG Electrocardiogram EDPR 12/20 20:05 Order name: EKG Electrocardiogram EDPR 12/20 20:05 Order name: EKG Electrocardiogram EDPR 12/20 20:09 Order name: COVID-19 : Document "Date of Symptom Onset" if Symptomatic. lp1 12/20 20:19 Order name: Manual Differential; Complete Time: 20:20 EDPR 12/20 18:30 Order name: Labs collected and sent; Complete Time: 18:57 [facility] 12/20 18:30 Order name: O2 Per Protocol; Complete Time: 18:57 [facility] 12/20 18:30 Order name: O2 Sat Monitoring; Complete Time: 18:58 [facility] 12/20 19:24 Order name: EKG - Nurse/Tech; Complete Time: 19:33 jmm Administered Medications: Discontinued: NS 0.9% 500 ml IV at bolus once 19:50 Drug: NS 0.9% 500 ml Route: IV; Rate: bolus; Site: right antecubital; rv 19:59 Follow up: IV Status: Order to discontinue infusion; IV Intake: 100ml rv 19:58 Drug: Metoprolol 25 mg Route: PO; rv 20:47 Follow up: Response: No adverse reaction rv 20:08 Drug: K-Lyte Effervescent Tablet 50 mEq Route: PO; rv 20:47 Follow up: Response: No adverse reaction rv Disposition: 12/21 09:44 Co-signature as Attending Physician, Julio Perera MD. rn Disposition: 12/20/20 20:00 Hospitalization ordered by Haily Lloyd for Observation. Preliminary diagnosis are Supraventricular tachycardia, Hypokalemia. - Bed requested for Telemetry/MedSurg (observation). - Status is Observation. rv - Condition is Stable. - Problem is an acute exacerbation. - Symptoms have improved. Signatures: Dispatcher [employer] EDMS Miguel Chung PA PA jmm Nieto, Roman, MD MD rn Garcia, Cindy, RN RN cg Davies, Jonathon, RN RN jPrakash Ching RN RN rv Corrections: (The following items were deleted from the chart) 12/20 20:36 20:00 Hospitalization Ordered by A Prema RAMOS for Observation. Preliminary diagnosis is cg Supraventricular tachycardia; Hypokalemia. Bed requested for Telemetry/MedSurg (observation). Status is Observation. Condition is Stable. Problem is an acute exacerbation. Symptoms have improved. [facility] 21:14 20:36 12/20/2020 20:00 Hospitalization Ordered by A Prema RAMOS for Observation. rv Preliminary diagnosis is Supraventricular tachycardia; Hypokalemia. Bed requested for Telemetry/MedSurg (observation). Status is Observation. Condition is Stable. Problem is an acute exacerbation. Symptoms have improved. cg
--- NOTE | 2020-12-20 20:00 | ER ---
Nurse's Notes [facility] Name: Michaela Anguiano Age: 89 yrs Sex: Female : 1930 Arrival Date: 12/20/2020 Time: 18:19 Bed 8 Private MD: Diagnosis: Supraventricular tachycardia;Hypokalemia Presentation: 12/20 18:20 Chief complaint: EMS states: "the pt is reporting chest pain today with tenderness to jd3 the chest on palpation and left arm where she received her COVID vaccine. the pt reported getting their COVID shot on 929. the pt reported symptoms started at 1200. pt took a Tylenol prior to call ing EMS.". Coronavirus screen: At this time, the client does not indicate any symptoms associated with coronavirus-19. Ebola Screen: Patient negative for fever greater than or equal to 101.5 degrees Fahrenheit, and additional compatible Ebola Virus Disease symptoms. Initial Sepsis Screen: Does the patient meet any 2 criteria? No. Patient's initial sepsis screen is negative. Does the patient have a suspected source of infection? No. Patient's initial sepsis screen is negative. Risk Assessment: Do you want to hurt yourself or someone else? Patient reports no desire to harm self or others. Onset of symptoms was December 20, 2020. 18:20 Method Of Arrival: EMS: [facility] jd3 18:20 Acuity: JAQUI 3 jd3 Historical: - Allergies: 18:24 adhesive tape; jd3 18:24 Aspirin; jd3 18:24 Codeine; jd3 18:24 erythromycin base; jd3 18:24 Latex, Natural Rubber; jd3 18:24 Peanut; jd3 18:24 PENICILLINS; jd3 - Home Meds: 18:24 Osphena oral oral [Active]; Nitrofurantoin Macrocrystal Oral [Active]; pantoprazole jd3 oral oral [Active]; - PMHx: 18:24 Dementia; Hypertension; jd3 - Immunization history:: Adult Immunizations up to date. - Social history:: Smoking status: Patient denies any tobacco usage or history of. Screenin:25 Abuse screen: Denies threats or abuse. Nutritional screening: No deficits noted. jd3 Tuberculosis screening: No symptoms or risk factors identified. Fall Risk Ambulatory Aid- None/Bed Rest/Nurse Assist (0 pts). Gait- Normal/Bed Rest/Wheelchair (0 pts) Mental Status- Oriented to own ability (0 pts). Total Skinner Fall Scale indicates No Risk (0-24 pts). Assessment: 18:15 General: Appears in no apparent distress. comfortable, Behavior is calm, cooperative, jd3 appropriate for age. Pain: Complains of pain in chest and left arm Quality of pain is described as aching, tender. Neuro: Level of Consciousness is awake, alert, obeys commands, Oriented to person, place, time, situation. 18:15 Cardiovascular: Capillary refill < 3 seconds Patient's skin is warm and dry. Rhythm is jd3 sinus tachycardia. Respiratory: Airway is patent Respiratory effort is even, unlabored, Respiratory pattern is regular, symmetrical, Denies cough. GI: No signs and/or symptoms were reported involving the gastrointestinal system. : No signs and/or symptoms were reported regarding the genitourinary system. EENT: No signs and/or symptoms were reported regarding the EENT system. Derm: Skin is intact, Skin is dry, Skin is normal, Skin temperature is warm. Musculoskeletal: Circulation, motion, and sensation intact. Range of motion: intact in all extremities. 19:00 Reassessment: Patient and/or family updated on plan of care and expected duration. Pain jd3 level reassessed. Patient is alert, oriented x 3, equal unlabored respirations, skin warm/dry/pink. Patient states feeling better. 20:42 Reassessment: NOTED CARDIAC RHYTHM ON SVT, WITH HR OF 213, DENIES CHEST PAIN AT THE rv MOMENT, PATIENT IS ALERT AND ORIENTED THE WHOLE TIME. CONVERTED CARDIAC RHYTHM TO SINUS TACHYCARDIA, THEN TO SINUS RHYTHM WITH HR OF 92. CARLIE RIZVI AT BEDSIDE. METOPROLOL GIVEN ORDERED. Vital Signs: 18:23 BP 124 / 95; Pulse 122; Resp 20 S; Temp 98.2(O); Pulse Ox 99% on R/A; Weight 63.5 kg jd3 (R); Height 5 ft. 1 in. (154.94 cm) (R); Pain 5/10; 18:58 BP 111 / 59; Pulse 108; Resp 19 S; Pulse Ox 100% on R/A; jd3 19:20 BP 93 / 56; Pulse 99; Resp 17; Pulse Ox 99% ; rr5 20:00 BP 127 / 65; Pulse 93; Resp 17; Pulse Ox 98% ; rr5 20:30 BP 121 / 56; Pulse 100; Resp 15; Temp 98; Pulse Ox 97% ; rr5 18:23 Body Mass Index 26.45 (63.50 kg, 154.94 cm) jd3 ED Course: 18:19 Patient arrived in ED. jd3 18:19 Camilo Armenta, RN is Primary Nurse. jd3 18:22 Triage completed. jd3 18:23 Arm band placed on. jd3 18:23 EKG completed in triage. Results shown to MD. jd3 18:25 Patient has correct armband on for positive identification. Placed in gown. Bed in low jd3 position. Call light in reach. Side rails up X2. monitoring specialist on. Pulse ox on. NIBP on. 18:29 Miguel Chung PA is PHCP. [facility] 18:29 Julio Perera MD is Attending Physician. m 18:58 Inserted saline lock: 20 gauge in right antecubital area, using aseptic technique. jd3 Blood collected. 19:11 XRAY Chest (1 view) In Process Unspecified. EDMS 20:00 Haily Lloyd MD is Hospitalizing Provider. [facility] 20:45 No provider procedures requiring assistance completed. Inserted saline lock: 20 gauge rv in left hand, using aseptic technique. IV is patent, with fluids infusing freely, Patient admitted, IV remains in place. Administered Medications: Discontinued: NS 0.9% 500 ml IV at bolus once 19:50 Drug: NS 0.9% 500 ml Route: IV; Rate: bolus; Site: right antecubital; rv 19:59 Follow up: IV Status: Order to discontinue infusion; IV Intake: 100ml rv 19:58 Drug: Metoprolol 25 mg Route: PO; rv 20:47 Follow up: Response: No adverse reaction rv 20:08 Drug: K-Lyte Effervescent Tablet 50 mEq Route: PO; rv 20:47 Follow up: Response: No adverse reaction rv Intake: 19:59 IV: 100ml; Total: 100ml. rv Outcome: 20:00 Decision to Hospitalize by Provider. m 20:46 Admitted to Med/surg accompanied by tech, via wheelchair, room 232, Other SBAR, EKG rv Report called to JUANITO CARRASCO 20:46 Condition: good 20:46 Instructed on the need for admit. 21:14 Patient left the ED. rv Signatures: Dispatcher [employer] EDMS Miguel Chung PA PA jmm Davies, Jonathon, RN RN jd3 Prakash Randolph RN RN rv Doni Bland RN RN rr5 Corrections: (The following items were deleted from the chart) 18:26 18:20 Chief complaint: EMS states: "the pt is reporting chest pain today with jd3 tenderness to the chest on palpation. the pt reported getting their COVID shot on 929. the pt reported symptoms started at 1200. pt took a Tylenol prior to call ing EMS." jd3
[2020-12-20] MEDS ORDERED: ONDANSETRON 4 MG/2 ML VIAL IV PRN (20:02)
[2020-12-20] MEDS ORDERED: METOPROLOL TAR 25 MG TAB ONE (20:11)
[2020-12-20 20:18] LABS: Blood Morphology Comment NOT SEEN (NOT SEEN); Platelet Estimate ADEQ
[2020-12-20] MEDS ORDERED: POTASSIUM 25 MEQ EFFERV TAB ONE (20:20)
[2020-12-20 23:29] VITALS: BMI 25.7
[2020-12-21 04:04] LABS: Potassium 4.4 mmol/L (3.5-5.1)
[2020-12-21 04:35] LABS: Absolute Lymphocytes (CBC) 0.6 K/uL (0.7-4.9); Basophils % 0.4 % (0-1.3); Hematocrit 34.6 % (36.0-45.0); Lymphocytes % 8.1 % (15.3-44.8); MPV 7.9 fL (7.6-11.3); RBC Red Blood Cell Count 3.79 M/uL (3.86-4.86)
[2020-12-21] MEDS: METOPROLOL TAR 25 MG TAB PO SCH ×2 (05:47→17:45)
[2020-12-21] MEDS: POTASSIUM CL SA 10 MEQ TAB PO SCH (10:30)
[2020-12-21] MEDS: NITROFURAN MACRO 100 MG CAP PO SCH ×2 (10:30→21:58)
[2020-12-21] MEDS: FUROSEMIDE 20 MG TABLET PO SCH (10:31)
--- NOTE | 2020-12-21 11:42 | CON ---
Date of Consultation: 12/21/2020 Reason For Consultation: Supraventricular tachycardia and syncope. History Of Present Illness: Ms. Anguiano is an 89-year-old woman. She is known to me from previous of fice visit and admission. She has a history of supraventricular tachycardia, gastroesophageal reflux disease, chronic diastolic congestive heart failure, and hypokalemia. She takes Lasix, metoprolol 2 5 b.i.d., potassium, and pantoprazole at home. Said she had COVID vaccination yesterday after that t dee went to grocery shop with her and after she went home, she was complaining of pain throug hout chest pain and abdominal pain, and leg pain. Her gave her some Tylenol for relief she had a syncopal spell. She at least she does not remember what happened from that night til l she woke up in the emergency room according to her. No nausea, vomiting, diaphoresis, PND, orthopn ea, pedal edema, or palpitation. Denied any fever or chills. Had a recent UTI in the hospital. Past Medical History: As stated above. Medications: Listed earlier. Allergies: HER ALLERGIES INCLUDE PEANUT, PENICILLIN, TAPE, AND ASPIRIN, AMONG OTHERS. Review of Systems: Negative. Social History: Negative. Family History: Negative. Physical Examination: General: Today she appears to be in no acute distress. Vital Signs: Stable. She was with sinus rhythm, heart rate of 89. HEENT: Negative. Neck: Supple. No bruit. Chest: Clear. Cardiac: Revealed aortic sclerosis murmur. Regular rhythm and rate. No gallops, no rubs. Abdomen: Benign. Extremities: Revealed no clubbing, cyanosis, or edema. Diagnostic Data: Within normal limits except for a potassium of 3.3. Impression And Plan: Syncope, history of supraventricular tachycardia. Echocardiogram is pending. Medications are appropriate. Potassium has been corrected. I will discuss the case further with Dr. Lloyd. No plan for any cardiac intervention at this point. MEMO/ERLIN Voice ID: [id number] Report ID: [id number]
[2020-12-21] MEDS: ACETAMINOPHEN 500 MG TAB PO PRN (18:04)
[2020-12-22] MEDS: METOPROLOL TAR 25 MG TAB PO SCH (05:50)
[2020-12-22] MEDS: ACETAMINOPHEN 500 MG TAB PO PRN (05:50)
[2020-12-22] MEDS: POTASSIUM CL SA 10 MEQ TAB PO SCH (08:21)
[2020-12-22] MEDS: NITROFURAN MACRO 100 MG CAP PO SCH (08:22)
[2020-12-22] MEDS: FUROSEMIDE 20 MG TABLET PO SCH (08:22)
[2020-12-22 08:24] VITALS: BP 111/56
--- NOTE | 2020-12-22 08:55 | ECHO ---
HEIGHT: 5 ft 1 in WEIGHT: 140 lb 8 oz DATE OF STUDY: 12/21/[address]: Juno Lloyd MD 2-DIMENSIONAL: YES M.MODE: YES DOPPLER: YES COLOR FLOW: YES TDS: PORTABLE: DEFINITY: BUBBLE STUDY: DIAGNOSIS: CONGESTIVE HEART FAILURE CARDIAC HISTORY: CATHERIZATION: SURGERY: PROSTHETIC VALVE: PACEMAKER: MEASUREMENTS (cm) DIASTOLIC (NORMALS) SYSTOLIC (NORMALS) IVSd 0.8 (0.6-1.2) LA Diam (1.9-4.0) LVEF 69% LVIDd 4.0 (3.5-5.7) LVIDs 2.5 (2.0-3.5) %FS 38% LVPWd 0.9 (0.6-1.2) Ao Diam 2.6 (2.0-3.7) 2 DIMENSIONAL ASSESSMENT: RIGHT ATRIUM: NORMAL LEFT ATRIUM: NORMAL RIGHT VENTRICLE: NORMAL LEFT VENTRICLE: NORMAL TRICUSPID VALVE: NORMAL MITRAL VALVE: MITRAL ANNULAR CALCIFICATION, MILD MITRAL REGURGITATION PULMONIC VALVE: NORMAL AORTIC VALVE: MODERATE AORTIC STENOSIS PERICARDIAL EFFUSION: NONE AORTIC ROOT: NORMAL LEFT VENTRICULAR WALL MOTION: NORMAL DOPPLER/COLOR FLOW: SEE BELOW COMMENTS: NORMAL LEFT VENTRICULAR EJECTION FRACTION 55-60% WITH NORMAL WALL MOTION. MODERATE AORTIC STENOSIS. MITRAL ANNULAR CALCIFICATION WITH MILD MITRAL REGURGITATION. TECHNOLOGIST: NAYE MEJIA
[2020-12-22 09:15] VITALS: O2SAT 90
[2020-12-22 09:30] VITALS: TEMP 97.3
--- NOTE | 2021-01-12 22:22 | HP ---
Date of Admission: 12/21/2020 Chief Complaint: Chest pain. History Of Present Illness: Ms. Anguiano is an 89-year-old female patient, who lives at home, came into emergency room with complaints of substernal chest pain. Denies any shortness of breath. No nausea. No vomiting. The patient was evaluated in the ER. She was admitted to the hospital. She denies any associated shortness of breath. No radiation of pain anywhere. Medications: List reviewed. Review of Systems: Cardiovascular: As mentioned above. All other systems reviewed and negative. Allergies: ASPIRIN, NONSTEROIDAL ANTI-INFLAMMATORY MEDICATION, PENICILLIN, CEPHALEXIN, CIPRO, ERYTHROMYCIN, CLINDAMYCIN, GEMFIBROZIL, CODEINE, HYDROCODONE, BENADRYL, MYRBETRIQ, AND ZYRTEC. Past Medical History: Significant for hypothyroidism, allergic rhinitis, hypertension, mixed hyperlipidemia, paroxysmal atrial fibrillation, mitral regurgitation, supraventricular tachycardia, gastroesophageal reflux disease. Past Surgical History: Cataract surgery, cholecystectomy, appendectomy, hysterectomy, bladder suspension. Family History: Father , had tuberculosis. Mother , had myocardial infarction. Social History: Negative for smoking or alcohol use. Physical Examination: Vital Signs: Temperature 98.2, pulse 122, respiratory rate 20, blood pressure 124/95, oxygen saturation 99%, height 5 feet 1 inch, weight 140 pounds. General: Awake, alert, oriented, not in distress. HEENT: Head atraumatic, normocephalic. Conjunctivae nonerythematous. Sclerae white. Mouth, no thrush or edema noted. Ears/Nose, no mass, lesion, discharge noted. Neck: Supple. No JVD, lymph nodes, bruit, thyromegaly noted. Lungs: Bilateral good equal air entry. Clear to auscultation. No rhonchi. No rales. Heart: Normal heart sounds. No murmur or gallop. Abdomen: Soft. Bowel sounds normal. No guarding, rigidity, tenderness, mass, hepatosplenomegaly, distention, or bruit noted. Extremities: No leg edema. No calf tenderness. Skin: No rash, ulcer, cellulitis. Lymphatics: No lymph node enlargement in neck, supraclavicular, infraclavicular region. Neuro: No focal neurological deficit. Chest: Unremarkable. External Genitalia: Deferred. Rectal: Deferred. Laboratory Data: Chest x-ray shows small bilateral pleural effusion. White count 12.2, hemoglobin 12.9, platelets 223. INR 1.01. Sodium 140, potassium 3.3, chloride 102, bicarb 28, BUN 20, creatinine 0.92, glucose 149. Liver function tests unremarkable. Troponin less than 0.02. Impression: 1. Chest pain. 2. Hypokalemia. 3. Hypothyroidism. 4. Hypertension. 5. Mixed hyperlipidemia. 6. History of paroxysmal atrial fibrillation. 7. Gastroesophageal reflux disease. Plan: Admit the patient to hospital for further evaluation and management of this problem. We will go ahead and continue home medications per order. We will consult Cardiology, get echo with Doppler. Details and plan of treatment discussed with the patient. I will see her tomorrow for followup. TIFFANY/ERLIN Voice ID: [id number] [email or web address]
--- NOTE | 2021-01-13 03:59 | DS ---
Date of Discharge: 12/22/2020 Disposition: Discharged to go home. Physical Examination: HEENT: Unremarkable. Lungs: Clear to auscultation. Heart: Sounds normal. Abdomen: Soft. Bowel sounds normal. No guarding, rigidity, tenderness, or distention. Extremities: No leg edema. Hospital Course: Ms. Anguiano is a very pleasant 89-year-old female patient, who came into the [facility] with complaints of chest pain. Please see dictated H and P for more information. After she was ad mitted to the hospital, [place] was ruled out by getting serial cardiac enzymes. Cardiology consultation was obtained from Dr. Munoz. Her echocardiogram showed normal ejection fraction, moderate aortic s tenosis. Overall, her condition was stable. Discharge Medications And Instructions: She was discharged to go home in stable condition with bre thomas. 1.Continue all prior home medication as prescribed during last hospital visit. 2.Follow up at my office next week on Monday and bring all medications with her. 3.Follow up with Dr. Munoz in 2 weeks. Final Diagnoses: 1.Chest pain. 2.Hypokalemia. 3.Anemia. 4.Hypertension. 5.Allergic rhinitis. 6.Hypothyroidism. 7.Mixed hyperlipidemia. 8.Gastroesophageal reflux disease. TIFFANY/MODL Voice ID: [id number] Report ID: [id number]
== END 2020-12-22 09:35 | disposition home or self-care (01) ==
LOC: ER 18:13 → ERHOLD 20:09 → 2ND 20:49
PROVIDERS: ADMIT Internal Medicine; ATTEND Internal Medicine
DX: I47.1 Supraventricular tachycardia (principal); R55 Syncope and collapse; K21.9 Gastro-esophageal reflux disease without esophagitis; I50.32 Chronic diastolic (congestive) heart failure; E87.6 Hypokalemia; R94.31 Abnormal electrocardiogram [ECG] [EKG]
CPT/HCPCS: 93005 ×3; 93306; 85025 ×2; 80048 ×2; 36415; 83735; 85610; 82947 ×2; 80076; 84484 ×3; 83880; 71045; 99285; J0153; J7040; J2405; G0378 ×3

== ENCOUNTER 2021-04-14 03:02 | Inpatient (IN) | payer OTHER ==
[2021-04-14 05:53] LABS: Absolute Lymphocytes (CBC) 1.5 K/uL (0.7-4.9); Basophils % 0.6 % (0-1.3); Hematocrit 34.5 % (36.0-45.0); Lymphocytes % 27.6 % (15.3-44.8); MPV 8.2 fL (7.6-11.3); RBC Red Blood Cell Count 3.71 M/uL (3.86-4.86)
[2021-04-14 06:04] LABS: BUN Blood Urea Nitrogen 11 mg/dL (7-18); Bicarbonate 29 mmol/L (21-32); Glucose Level 109 mg/dL (74-106); Sodium Level 143 mmol/L (136-145)
[2021-04-14 06:07] LABS: Magnesium 2.5 mg/dL (1.8-2.4); Potassium 3.8 mmol/L (3.5-5.1)
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
[2021-04-14 07:17] LABS: Urine Blood Negative (Negative); Urine Glucose Negative (Negative); Urine Protein Negative (Negative); Urine Specific Gravity 1.015 (1.005-1.030)
[2021-04-14 07:29] LABS: Urine Bacteria NONE SEEN /HPF (<20); Urine RBC NONE SEEN /HPF (NONE SEEN)
[2021-04-14] MEDS: FUROSEMIDE 20 MG TABLET PO SCH (08:56)
[2021-04-14] MEDS: METOPROLOL XL 25 MG TAB PO SCH ×2 (08:57→21:37)
[2021-04-14] MEDS ORDERED: FUROSEMIDE 20 MG TABLET ONE (09:13)
[2021-04-14] MEDS ORDERED: METOPROLOL TAR 25 MG TAB ONE (09:13)
[2021-04-14 09:17] VITALS: BMI 22.7
[2021-04-14] MEDS ORDERED: HALOPERIDOL LACT 5 MG/ML INJ IV PRN (10:15)
[2021-04-14] MEDS ORDERED: HALOPERIDOL LACT 5 MG/ML INJ ONE (10:50)
--- NOTE | 2021-04-14 11:35 | RAD REPORT ---
EXAM DESCRIPTION: CT Head Without Intravenous Contrast CLINICAL HISTORY: The patient is 89 years old and is Female; AMS TECHNIQUE: Axial computed tomography images of the head/brain without intravenous contrast. Sagitt al and coronal reformatted images were created and reviewed. This CT exam was performed using one o r more of the following dose reduction techniques: automated exposure control, adjustment of the mA and/or kV according to patient size, and/or use of iterative reconstruction technique. COMPARISON: No relevant prior studies available. FINDINGS: Brain: Unremarkable. No hemorrhage. No significant white matter disease. No edema. Ventricles: Unremarkable. No ventriculomegaly. Bones/joints: Unremarkable. No acute fracture. Soft tissues: Unremarkable. Sinuses: Unremarkable as visualized. Mastoid air cells: Unremarkable as visualized. No mastoid effusion. IMPRESSION: No acute intracranial abnormality. Electronically signed by: Gwyn Chapman MD 04/14/2021 3:59 AM CDT Due to temporary technical issues with the PACS/Fluency reporting system, reports are being signed by the in house radiologist without review as a courtesy to ensure prompt reporting. The interpreting r adiologist is fully responsible for the content of the report.
[2021-04-14] MEDS: ENOXAPARIN 40 MG/0.4 ML SQ SCH (17:13)
[2021-04-14] MEDS ORDERED: ENOXAPARIN 40 MG/0.4 ML SQ ONE (17:30)
--- NOTE | 2021-04-14 22:56 | HP ---
Date of Admission: 04/14/2021 Chief Complaint: Altered mental status. History Of Present Illness: This is an 89-year-old female having worsening memory problem, lives at home with her . The patient is having trouble with her memory and last night she ran out of her house and she was noted to be very confused by her neighbor who actually called the ambulance and she was brought into emergency room. After she arrived in the emergency room. I was contacted requesting admission to the hospital. When I saw her in the emergency room, she was lying in bed. I have been taking care of her for the last several years and she was not able to recognize me when I entered her room in the emergency room. The patient did not even know that she was in [place]. She did realize that she was in the hospital. The patient does realize that she has some mental problem. She denies any fever, chills, nausea, vomiting, diarrhea etc. Allergies: TO ASPIRIN, NONSTEROIDAL ANTI-INFLAMMATORY MEDICATIONS. DETAILS UNKNOWN ABOUT THESE ALLERGIES. SHE IS ALSO ALLERGIC TO PENICILLIN CAUSING RASH; CEPHALEXIN CAUSING ITCHING, CIPRO, DETAILS UNKNOWN; ERYTHROMYCIN CAUSING NAUSEA AND VOMITING; CLINDAMYCIN CAUSING DIARRHEA AND VOMITING; GEMFIBROZIL CAUSING MYALGIA; CODEINE, DETAILS UNKNOWN; HYDROCODONE, DETAILS UNKNOWN; BENADRYL CAUSES RASH AND ITCHING, MYRBETRIQ CAUSES MEMORY LOSS; AND ZYRTEC, DETAILS UNKNOWN. Medications: Furosemide 20 mg daily, metoprolol succinate 25 mg 2 times a day, pantoprazole 40 mg daily, potassium chloride 10 mEq daily. 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 All other systems reviewed and negative. 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 Past Surgical History: Cataract surgery, cholecystectomy, appendectomy, hysterectomy, bladder suspension. Family History: Father had pulmonary tuberculosis and mother had myocardial infarction. Social History: Negative for smoking or alcohol use. Physical Examination: Vital Signs: When she came into emergency room blood, pressure was 161/93, pulse 78, respiratory rate 18, temperature 98.2, oxygen saturation 99%. General: Awake, alert, oriented, not in distress. HEENT: Head atraumatic, normocephalic. Conjunctivae nonerythematous. Sclerae white. Mouth, no thrush or edema noted. Ears/Nose, no mass, lesion, discharge noted. Neck: Supple. No JVD, lymph nodes, bruit, thyromegaly noted. Lungs: Bilateral good equal air entry. Clear to auscultation. No rhonchi. No rales. Heart: Normal heart sounds, no murmur or gallop. Abdomen: Soft, bowel sounds normal. No guarding, rigidity, tenderness, mass, hepatosplenomegaly, distention, or bruit noted. Extremities: No leg edema. No calf tenderness. Skin: No rash, ulcer, cellulitis. Lymphatics: No lymph node enlargement in neck, supraclavicular, infraclavicular region. Neuro: The patient is awake, alert, but not oriented. No focal neurological deficit. Chest: Unremarkable. External Genitalia: Deferred. Rectal: Deferred. Laboratory Data: White count 5.2, hemoglobin 11.5, platelets 186, sodium 143, potassium 3.8, chloride 110, bicarb 29, BUN 11, creatinine 0.62, glucose 109, magnesium 2.5, procalcitonin less than 0.05. Urinalysis negative. CAT scan of the head, no acute intracranial changes. Impression: 1. Altered mental status. 2. Senile dementia. 3. Hypertension. 4. Hyperlipidemia. 5. Gastroesophageal reflux disease. 6. Hypothyroidism. 7. Allergic rhinitis. Plan: 1. Admit the patient to hospital for further evaluation and management of this problem. The patient is appropriate for hospital admission and we will go ahead and consult neurologist, Dr. Yang. We will continue home medications per order. After I saw her, the patient was having agitation problem and she was given Haldol on a p.r.n. basis. The patient's is having increasing difficult time keeping her at home and I believe that at this point, it is not safe for her to leave at home or return back home right away. I did talk to patient regarding going to care home and she refuses to do so. We will consult Social Service to assist with discharge planning and we did entertain possibility of Geropsych placement and Social Service will assist us with this. We will see her tomorrow for followup. TIFFANY/ABBYL Voice ID: [id number] CHEMO
[2021-04-15 04:42] LABS: Absolute Lymphocytes (CBC) 1.9 K/uL (0.7-4.9); Basophils % 0.5 % (0-1.3); Hematocrit 36.9 % (36.0-45.0); Lymphocytes % 34.6 % (15.3-44.8); MPV 8.3 fL (7.6-11.3); RBC Red Blood Cell Count 4.01 M/uL (3.86-4.86)
[2021-04-15 05:01] LABS: Potassium 3.5 mmol/L (3.5-5.1)
[2021-04-15] MEDS ORDERED: POTASSIUM CL SA 10 MEQ TAB PO ONE ×2 (05:23→05:48)
[2021-04-15] MEDS: PANTOPRAZOLE 40MG TABLET PO SCH (05:32)
[2021-04-15] MEDS: FUROSEMIDE 20 MG TABLET PO SCH (08:47)
[2021-04-15] MEDS: METOPROLOL XL 25 MG TAB PO SCH ×2 (08:48→20:00)
[2021-04-15] MEDS: ENOXAPARIN 40 MG/0.4 ML SQ SCH (17:00)
--- NOTE | 2021-04-15 21:11 | CON ---
Reason For Consultation: Consultation called because of worsening cognitive functioning. History Of Present Illness: Ms. Anguiano is an 89-year-old right-handed patient, who was see n in clinic for dementia, last visit about 3 years ago in June of 2019. At that time, she scored a 12/30 on the Benson Cognitive Assessment test. She had missed 3 for visual-spatial functioning, 1 for naming, 3 for tension, 3 for language, 1 for abstraction, and 5 for delayed verbal recall along with 3 for orientation. I then placed her in a severe cognitive dysfunction state. Her workup did n ot reveal a specific cause for dementia. She had a brain MRI showing minimal small vessel ischemic d isease. Her EEG was normal. 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 She had a low vitamin D level. As indicated, the patient has been back in office for about 3 years. In terms of her hospital admis johnnie at this time, she came to [facility] on the 14 of April, was reportedly in the street. She ran out of her house, was confused, disoriented and brought by ambulance to [facility]. She saw Dr. Lloyd, but did not recognize him despite him being her doctor for many years. She did e ventually apparently know where she was, but is not fully oriented. Again, she had a very severe cog nitive dysfunction around 3 years ago. Her workup included complete blood count with differential, which was essentially unremarkable. Urin alysis was normal. Chemistries showed a mildly elevated magnesium, negative procalcitonin normal at 0.05. Electrolytes otherwise unremarkable. COVID-[address] scan showed no sign ificant abnormalities, no acute intracranial findings, this read as unremarkable. Past Medical History: As indicated in addition to hypothyroidism, dyslipidemia, atrial fibrillation, GE reflux, and perhaps Alzheimer disease, although it is not clear at this point, but her workup is not consistent with advanced Alzheimer's disease at least by last MRI and more recent brain imaging. Past Surgical History: Cataract surgery, cholecystectomy, appendectomy, hysterectomy, and bladder burt spension. Family History: Myocardial infarction in mother. Tuberculosis in father. Social History: No alcohol, tobacco, or IV drug use. Review of Systems: She reported no recent fevers, chills, nausea, vomiting, myalgias, arthralgias, rash, headache, weigh t change, psychiatric complaints, that is other than mentioned above. Physical Examination: Vital Signs: Blood pressure 168/92, pulse 84, respiratory rate 18, temperature 98.2, oxygen saturati on 97% on room air. Weight 124 pounds, height 5 feet 2 inches, BMI 22.7. General: Ms. Anguiano was actually walking in the room, going back from the restroom to her bed. She is in no acute distress. HEENT: She is normocephalic, atraumatic. Her sclerae are anicteric. Oropharynx is pink and moist. Neck: Supple. Chest: Clear. Heart: Regular. Extremities: No significant clubbing, cyanosis, or edema. Neurological: She is alert and oriented to person and situation. She is aware that I came to see he r, Dr. Yang, and then Dr. Lloyd came to see her yesterday. She follows all commands appropriately . She had no expressive aphasia, no receptive aphasia. Cranial nerves showed no focal deficits on 2 through 12. Motor in the upper and lower extremities 5/5 proximally and distally. Sensory exam int act in the upper and lower extremities. Coordination intact in the upper and lower extremities. Ref lexes 1+ and symmetric. Gait with good stance, stride, and arm swing. At this stage, the patient di d have some difficulty with the exact date, recalling 3 words after 3 minutes, doing serial 7 subtrac tion, and following complex commands, consistent with moderate dementia. Assessment: Ms. Anguiano is an 89-year-old patient with an apparent acute psychotic episode and bizarr e behavior, running in the street. She is at this point not exhibiting any psychotic issues; however , it is clear that may resume at some point, especially given her severe dementia, which was document ed around 3 years ago. She does not have any evidence of infection, any significant electrolyte abno rmalities, and no obvious explanation for any acute change that is organic, but it should be noted th at with dementia such as Alzheimer disease, the patient can become more confused than baseline of unc lear etiology. Plan: The patient may require placement at this point for her own safety. She may be placed on [facility] Namenda or donepezil to help. She is currently given Haldol as needed and has DVT prophylaxis per primary team. At this point, the patient has no acute need in terms of diagnostic workup, but requi res more longer term placement for her cognitive deficits. VERONICA/ERLIN Voice ID: [id number] Report ID: [id number]
[2021-04-15] MEDS: QUETIAPINE 25 MG TAB PO SCH (22:30)
--- NOTE | 2021-04-15 23:03 | PN ---
Date of Progress Note: 04/15/2021 Subjective: The patient was seen this morning for followup. When I entered her room, she was walkin g around in the room and she did not recognize me at all. Upon further questioning, the patient repo rted that she was looking for her and she told me that she does not know where she is right n ow, but she did not realize that she was still in the hospital. At the same time, she tells me that her was with her and they both had trouble somewhere and they stopped by here overnight and h er is gone and he will come back at some point, but she was looking for her . The pat massiel thought that she had gone somewhere out of town with her . Denies any chest pain, shortn ess of breath, nausea, vomiting. Objective: Vital Signs: Reviewed. HEENT: Unremarkable. Lungs: Clear to auscultation. Heart: Sounds normal. Abdomen: Soft. Bowel sounds normal. No guarding, rigidity, tenderness, distention. Extremities: No leg edema. Neuro: No focal neurological deficits. Laboratory Data: White count 5.6, hemoglobin 12.5, platelets 194. Sodium 142, potassium 3.5, chlori de 106, bicarb 32, BUN 12, creatinine 0.66, glucose 100. Impression: 1.Altered mental status. 2.Dementia. 3.Hypertension. 4.Supraventricular tachycardia. Plan: We will go ahead and continue to follow with neurologist, Dr. Yang. There is no psychiatr ist available for any consultation and will not be available for next 10 days or so. I did communica te with Social Service today and informed her that my recommendation is for patient to go to penitentiary facility preferably locked unit at [facility] or any facilities like that and she will communicate with Dr. Yang and family regarding this. Meanwhile, we will continue current medications and I w ill see her tomorrow for followup. TIFFANY/MODL Voice ID: [id number] Report ID: [id number]
[2021-04-16] MEDS: PANTOPRAZOLE 40MG TABLET PO SCH ×2 (05:28→05:38)
[2021-04-16] MEDS: FUROSEMIDE 20 MG TABLET PO SCH (08:28)
[2021-04-16] MEDS: METOPROLOL XL 25 MG TAB PO SCH ×2 (08:28→19:50)
[2021-04-16] MEDS ORDERED: DONEPEZIL HCL 5 MG TAB PO SCH (11:00)
[2021-04-16] MEDS: ENSURE ENLIVE 237 ML CAN PO SCH ×2 (13:01→19:50)
--- NOTE | 2021-04-16 13:04 | PN ---
Date of Progress Note: 04/16/2021 Subjective: The patient was seen this morning for followup. She was lying bed. Her with he r at bedside. She remains confused as yesterday. She pulled out her IV and will not keep any IV acc ess, so we have changed her medications to oral medications. She had a bowel movement this morning a nd her appetite is fair to good as reported by the patient and nursing staff. Objective: Vital Signs: Reviewed. HEENT: Unremarkable. Lungs: Clear to auscultation. Heart: Sounds normal. Abdomen: Soft. Bowel sounds normal. No guarding, rigidity, tenderness, or distention. Extremities: No leg edema. Neuro: No focal neurological deficit, but the patient has significant dementia and continues to nancy in disoriented. Impression: 1.Senile dementia. 2.Hypertension. 3.Supraventricular tachycardia. Plan: We will go ahead and continue current medication. Her home medications will be continued. We will also continue DVT prophylaxis with Lovenox. We will start her on donepezil. Neurology consult ation is appreciated. Make arrangements for disposition and I did discuss details with the patient's today regarding discharge planning. The patient's is not able to take care of her a t home with worsening dementia problem and now with having paranoid features. Yesterday, we started her on Seroquel and she responded somewhat at nighttime as reported by nursing staff. We will plan to increase the dose of Seroquel from 25 to 50 mg. TIFFANY/MODL Voice ID: [id number] Report ID: [id number]
[2021-04-16] MEDS: ENOXAPARIN 40 MG/0.4 ML SQ SCH (16:33)
[2021-04-16] MEDS: QUETIAPINE 25 MG TAB PO SCH ×2 (19:50→22:56)
[2021-04-17] MEDS: PANTOPRAZOLE 40MG TABLET PO SCH (05:13)
[2021-04-17] MEDS: ENSURE ENLIVE 237 ML CAN PO SCH ×3 (08:30→19:39)
[2021-04-17] MEDS: METOPROLOL XL 25 MG TAB PO SCH ×2 (08:51→19:38)
[2021-04-17] MEDS: FUROSEMIDE 20 MG TABLET PO SCH (08:52)
--- NOTE | 2021-04-17 12:35 | PN ---
Date of Progress Note: 04/17/2021 Subjective: The patient was seen this morning for followup. No new complaints or problems reported by patient. She was lying in bed, not in distress. Her appetite is fair to poor, but she does like Ensure and was asked to drink that as per order 3 times a day. Last night, she got 50 mg of Seroquel and nurse reports that she slept very well starting from 10:[address] till this morning around 7 a.m., she was sleeping well throughout the night. This morning when I saw her, she was lying in bed, not restless, not in any distress. Objective: Vital Signs: Reviewed. HEENT: Unremarkable. Lungs: Clear to auscultation. Cardiac: Heart sounds normal. Abdomen: Soft. Bowel sounds normal. No guarding, rigidity, tenderness, or distention. Extremity: No leg edema. Impression: 1. Senile dementia with paranoid features. 2. Hypertension. 3. Supraventricular tachycardia. Plan: We will go ahead and continue current medications. Continue Seroquel 50 mg at bedtime that seems to have worked very well for her. There is no evidence of daytime drowsiness so far, but if we notice that and we may have to cut back on the dose, but right now we will continue at 50 mg dose. Physical therapy to work with the patient yesterday. I did talk to Case Management and family in agreement for her to go to Shelter Facility at [facility], where there is a secure locked unit which will be safer for patient as she has tendency to wander outside as she already has done it getting out of her house. I will see her tomorrow for followup. Once we get approval from insurance company, we will be able to discharge her from hospital to go to this particular facility. Case Management has communicated with her and the patient's son. TIFFANY/MODL Voice ID: [id number] Report ID: [id number] CHEMO
[2021-04-17] MEDS: DONEPEZIL HCL 5 MG TAB PO SCH (16:58)
[2021-04-17] MEDS: ENOXAPARIN 40 MG/0.4 ML SQ SCH (17:00)
[2021-04-17] MEDS: QUETIAPINE 25 MG TAB PO SCH (19:39)
[2021-04-18] MEDS: PANTOPRAZOLE 40MG TABLET PO SCH (05:02)
[2021-04-18] MEDS: ENSURE ENLIVE 237 ML CAN PO SCH ×3 (08:30→19:12)
[2021-04-18] MEDS: QUETIAPINE 25 MG TAB PO SCH ×2 (09:29→19:11)
[2021-04-18] MEDS: FUROSEMIDE 20 MG TABLET PO SCH (09:30)
[2021-04-18] MEDS: METOPROLOL XL 25 MG TAB PO SCH ×2 (09:30→19:11)
--- NOTE | 2021-04-18 12:12 | PN ---
Date of Progress Note: 04/18/2021 Subjective: The patient was seen this morning for followup. No new complaints or problems reported by the patient. Lying in bed, not in distress. Vital signs reviewed. She slept reasonably well las night and she is calm this morning, not agitated, has fairly good appetite. Denies any abdominal p ain, nausea, vomiting. Objective: Vital Signs: Reviewed. HEENT: Unremarkable. Lungs: Clear to auscultation. Heart: Sounds normal. Abdomen: Soft. Bowel sounds normal. No guarding, rigidity, tenderness, or distention. Extremities: No leg edema. Impression: 1.Senile dementia with paranoid features. 2.Hypertension. 3.Supraventricular tachycardia. Plan: We will go ahead and increase the dose of Seroquel from 25 mg at bedtime that she received las night and we will increase the dose to 25 mg 2 times a day starting this morning. Yesterday aftern oon and evening hours, she had some anxiety and agitation problem, so we will see how change in the S eroquel dose will help her controlling symptoms well. I will see her tomorrow for followup. The christopher rankin was complaining of some back pain and I advised her to try to spend some time sitting in the berry ir and to ambulate in the room and that should help alleviate some of her back pain problem. TIFFANY/MODL Voice ID: [id number] Report ID: [id number]
[2021-04-18] MEDS: ENOXAPARIN 40 MG/0.4 ML SQ SCH (16:50)
[2021-04-18] MEDS: DONEPEZIL HCL 5 MG TAB PO SCH (19:11)
[2021-04-18] MEDS: ACETAMINOPHEN 500 MG TAB PO PRN (19:13)
[2021-04-19] MEDS: PANTOPRAZOLE 40MG TABLET PO SCH (05:53)
[2021-04-19 06:07] LABS: Absolute Lymphocytes (CBC) 2.1 K/uL (0.7-4.9); Basophils % 0.5 % (0-1.3); Hematocrit 37.1 % (36.0-45.0); Lymphocytes % 40.2 % (15.3-44.8); MPV 8.3 fL (7.6-11.3); RBC Red Blood Cell Count 4.04 M/uL (3.86-4.86)
[2021-04-19 06:21] LABS: Magnesium 2.5 mg/dL (1.8-2.4)
[2021-04-19] MEDS: ENSURE ENLIVE 237 ML CAN PO SCH ×3 (09:00→20:25)
[2021-04-19] MEDS: QUETIAPINE 25 MG TAB PO SCH ×2 (09:14→20:21)
[2021-04-19] MEDS: FUROSEMIDE 20 MG TABLET PO SCH (09:14)
[2021-04-19] MEDS: METOPROLOL XL 25 MG TAB PO SCH ×2 (09:14→20:21)
[2021-04-19] MEDS: ACETAMINOPHEN 500 MG TAB PO PRN ×2 (09:17→23:44)
[2021-04-19] MEDS: ENOXAPARIN 40 MG/0.4 ML SQ SCH (17:00)
[2021-04-19] MEDS: DONEPEZIL HCL 5 MG TAB PO SCH (20:21)
[2021-04-20] MEDS: PANTOPRAZOLE 40MG TABLET PO SCH (05:40)
[2021-04-20] MEDS: QUETIAPINE 25 MG TAB PO SCH ×2 (09:30→21:00)
[2021-04-20] MEDS: FUROSEMIDE 20 MG TABLET PO SCH (09:31)
[2021-04-20] MEDS: METOPROLOL XL 25 MG TAB PO SCH ×2 (09:31→21:00)
[2021-04-20] MEDS: ENSURE ENLIVE 237 ML CAN PO SCH ×3 (09:32→21:00)
--- NOTE | 2021-04-20 10:20 | PN ---
Date of Progress Note: 04/19/2021 Subjective: The patient was seen this morning for followup. No new complaints or problems reported by the patient. Lying in bed, not in distress. She has responded well to Seroquel. Objective: Vital Signs: Reviewed. HEENT: Unremarkable. Lungs: Clear to auscultation. Heart: Sounds normal. Abdomen: Soft. Bowel sounds normal. No guarding, rigidity, tenderness, or distention. Extremities: No leg edema. Laboratory Data: White count 5.3, hemoglobin 12.8, platelets 176. Sodium 142, potassium 4, chloride 105, bicarb 33, BUN 21, creatinine 0.70, glucose is 95. Impression: 1.Senile dementia with paranoid features. 2.Hypertension. 3.Supraventricular tachycardia, stable. Plan: We will go ahead and continue current medications, continue current antihypertensive medicatio n, and Seroquel, we will continue that. We are awaiting for Social Service to complete arrangements for the patient to go to residential facility. TIFFANY/MODL Voice ID: [id number] Report ID: [id number]
[2021-04-20] MEDS: ENOXAPARIN 40 MG/0.4 ML SQ SCH (16:35)
[2021-04-20] MEDS: DONEPEZIL HCL 5 MG TAB PO SCH (21:01)
--- NOTE | 2021-04-20 22:56 | PN ---
Date of Progress Note: 04/20/2021 Subjective: Patient was seen this morning for followup. No new complaints or problems reported by h er. Lying in bed. Not in distress. Objective: Vital Signs: Reviewed. HEENT: Examination unremarkable. Lungs: Clear to auscultation. Heart: Sounds normal. Abdomen: Soft. Bowel sounds normal. No guarding, rigidity, tenderness, distention. Extremities: No leg edema. Impression: 1.Senile dementia with paranoid features. 2.Hypertension. 3.Supraventricular tachycardia. Plan: Continue current medications. Continue metoprolol and furosemide. I will see her tomorrow fo r followup. We are waiting on insurance [employer]'s approval for patient to go to senior living faci lit. TIFFANY/MODL Voice ID: [id number] Report ID: [id number]
[2021-04-21] MEDS: PANTOPRAZOLE 40MG TABLET PO SCH (05:54)
[2021-04-21] MEDS: FUROSEMIDE 20 MG TABLET PO SCH (08:37)
[2021-04-21] MEDS: QUETIAPINE 25 MG TAB PO SCH ×2 (08:38→19:21)
[2021-04-21] MEDS: METOPROLOL XL 25 MG TAB PO SCH ×2 (08:38→21:00)
[2021-04-21] MEDS: ENSURE ENLIVE 237 ML CAN PO SCH ×3 (08:39→21:00)
[2021-04-21] MEDS ORDERED: WATER FOR INJ,STERILE 10 ML IM PRN (09:43)
[2021-04-21] MEDS ORDERED: ZIPRASIDONE MESYLA 20 MG/VIAL IM ONE (09:43)
[2021-04-21] MEDS: ENOXAPARIN 40 MG/0.4 ML SQ SCH (16:01)
[2021-04-21] MEDS: DONEPEZIL HCL 5 MG TAB PO SCH (19:20)
[2021-04-21] MEDS ORDERED: QUETIAPINE 25 MG TAB PO ONE (20:46)
[2021-04-21] MEDS: ALPRAZOLAM 0.25 MG TABLET PO PRN (20:58)
--- NOTE | 2021-04-21 21:26 | PN ---
Date of Progress Note: 04/21/2021 Subjective: The patient was seen this morning for followup. No new complaints or problems reported. She did not sleep last night at all as reported by nursing staff. She was sitting in chair. Ashlie zhong any new complaints. Nurse was with her at bedside. Objective: Vital Signs: Reviewed. HEENT: Examination unremarkable. Lungs: Clear to auscultation. Heart: Sounds normal. Abdomen: Soft. Bowel sounds normal. No guarding, rigidity, tenderness, distention. Extremities: No leg edema. Impression: 1.Senile dementia with paranoid features. 2.Hypertension. 3.Supraventricular tachycardia. Plan: The patient is on Seroquel. We will continue that, but today during course of day, nurse cont acted me, informed me that the patient was agitated and very restless and Geodon 10 mg IM x1 dose was ordered. We will go ahead and consider to increase dose of Seroquel. She is currently on 25 mg twi ce a day. We will increase dose to 50 mg twice a day. We are still waiting on medineering's a pproval to go to a nursing home facility. TIFFAYN/MODL Voice ID: [id number] Report ID: [id number]
[2021-04-22] MEDS: PANTOPRAZOLE 40MG TABLET PO SCH (06:30)
[2021-04-22] MEDS: QUETIAPINE 25 MG TAB PO SCH ×2 (08:13→21:03)
[2021-04-22] MEDS: ALPRAZOLAM 0.25 MG TABLET PO PRN ×2 (08:14→21:03)
[2021-04-22] MEDS: FUROSEMIDE 20 MG TABLET PO SCH (08:14)
[2021-04-22] MEDS: ENSURE ENLIVE 237 ML CAN PO SCH ×3 (08:17→21:00)
[2021-04-22] MEDS: METOPROLOL XL 25 MG TAB PO SCH ×2 (09:00→21:03)
[2021-04-22] MEDS: ACETAMINOPHEN 500 MG TAB PO PRN ×2 (12:13→21:03)
[2021-04-22 13:56] LABS: Absolute Lymphocytes (CBC) 1.9 K/uL (0.7-4.9); Basophils % 0.5 % (0-1.3); Hematocrit 36.1 % (36.0-45.0); Lymphocytes % 36.8 % (15.3-44.8); MPV 8.7 fL (7.6-11.3)
[2021-04-22 14:10] LABS: Magnesium 2.4 mg/dL (1.8-2.4); Potassium 3.7 mmol/L (3.5-5.1)
[2021-04-22] MEDS: ENOXAPARIN 40 MG/0.4 ML SQ SCH (17:00)
[2021-04-22] MEDS: DONEPEZIL HCL 5 MG TAB PO SCH (21:03)
--- NOTE | 2021-04-23 00:25 | PN ---
Date of Progress Note: 04/22/2021 Subjective: The patient was seen this morning for followup. She slept very well last night as repor abhiijt by nursing staff. This morning when I walked into her room, nurse was with her and the patient w as telling nurse that she thought [place] and not in the [place]. Denied any new complain ts this morning. Yesterday, she had lot of problem with agitation. During daytime, she required Gonzalo don, which did not help her. We had increased dose of Seroquel yesterday and we also had to add alpr azolam for p.r.n. use. Objective: Vital Signs: Reviewed. HEENT: Unremarkable. Lungs: Clear to auscultation. Heart: Sounds normal. Abdomen: Soft. Bowel sounds normal. No guarding, rigidity, tenderness, distention. Extremities: No leg edema. Impression: 1.Senile dementia with paranoid features. 2.Hypertension. 3.Supraventricular tachycardia. Plan: We will continue current medications. Continue Seroquel and alprazolam as per order. Continu e current antihypertensive medication and DVT prophylaxis. We are still waiting for insurance compan y to approve residential facility placement. TIFFANY/MODL Voice ID: [id number] Report ID: [id number]
[2021-04-23] MEDS: PANTOPRAZOLE 40MG TABLET PO SCH (06:30)
[2021-04-23] MEDS: METOPROLOL XL 25 MG TAB PO SCH ×2 (08:02→21:43)
[2021-04-23] MEDS: ALPRAZOLAM 0.25 MG TABLET PO PRN ×2 (08:02→18:14)
[2021-04-23] MEDS: QUETIAPINE 25 MG TAB PO SCH ×2 (08:02→19:40)
[2021-04-23] MEDS: FUROSEMIDE 20 MG TABLET PO SCH (08:02)
[2021-04-23] MEDS: ENSURE ENLIVE 237 ML CAN PO SCH ×3 (08:03→19:39)
--- NOTE | 2021-04-23 12:17 | PN ---
Date of Progress Note: 04/23/2021 Subjective: The patient was seen this morning for followup. She was lying in bed, not in distress. Nurse reported that the patient slept very well throughout the night and yesterday during day time s he did very well, much better compared to previous day. Currently, she is on Seroquel 50 mg 2 times a day and alprazolam. She took 2 doses yesterday 0.25 mg dose in the morning and same at nighttime a nd this actually has helped her very well. This combination treatment is controlling her agitation, anxiety very well. She has a fairly good appetite. Objective: HEENT: Unremarkable. Lungs: Clear to auscultation. Cardiac: Heart sounds normal. Abdomen: Soft, bowel sounds normal. No guarding, rigidity, tenderness, distention. Extremities: No leg edema. Impression: 1.Senile dementia with paranoid features. 2.Hypertension. 3.Supraventricular tachycardia. Plan: We will continue current medication. We are still waiting on insurance approval for patient t o go to penitentiary facility. Meanwhile, we will continue current medical management which seems to be controlling her dementia symptoms very well. There is no evidence of any drowsiness. This mo rning when I saw her, she was very calm and comfortable, awake and alert, obviously not oriented. TIFFANY/MODL Voice ID: [id number] Report ID: [id number]
[2021-04-23] MEDS: ENOXAPARIN 40 MG/0.4 ML SQ SCH (16:07)
[2021-04-23] MEDS: ACETAMINOPHEN 500 MG TAB PO PRN (19:40)
[2021-04-23] MEDS: DONEPEZIL HCL 5 MG TAB PO SCH (19:41)
[2021-04-24] MEDS: PANTOPRAZOLE 40MG TABLET PO SCH (06:30)
[2021-04-24 08:37] VITALS: O2SAT 97
[2021-04-24] MEDS: ENSURE ENLIVE 237 ML CAN PO SCH (09:00)
[2021-04-24] MEDS: METOPROLOL XL 25 MG TAB PO SCH (09:56)
[2021-04-24] MEDS: FUROSEMIDE 20 MG TABLET PO SCH (09:57)
[2021-04-24] MEDS: QUETIAPINE 25 MG TAB PO SCH (09:57)
[2021-04-24 13:08] VITALS: BP 128/68; TEMP 97.8
== END 2021-04-24 12:51 | disposition home or self-care (01) | DRG 884 ==
LOC: SUPCPDRO 03:02 → ER 03:02 → ERHOLD 06:18 → 2ND 17:17 → OBSVTOIN 04-15 12:19
PROVIDERS: ADMIT Internal Medicine; ATTEND Internal Medicine
DX: F03.90 Unspecified dementia, unspecified severity, without behavioral disturbance, psychotic disturbance, mood disturbance, and anxiety (principal); I47.1 Supraventricular tachycardia; I10 Essential (primary) hypertension; E03.9 Hypothyroidism, unspecified; E78.2 Mixed hyperlipidemia; I48.0 Paroxysmal atrial fibrillation; J30.9 Allergic rhinitis, unspecified; Z20.822 Contact with and (suspected) exposure to COVID-19
CPT/HCPCS: 36415; 70450; 80048; 81003; 81015; 82947; 83735; 84132; 84145; 85025; 87040; 87086; 87088; 97161; 99285; G0378; J1630; J1650; J3486; U0003

== ENCOUNTER 2021-08-10 15:00 | Inpatient (IN) | payer OTHER ==
--- NOTE | 2021-08-10 15:16 | ER ---
Nurse's Notes [facility] Name: Michaela Anguiano Age: 89 yrs Sex: Female : 1930 Arrival Date: 08/10/2021 Time: 14:55 Bed 7 Private MD: Diagnosis: Dementia in other diseases classified elsewhere with behavioral disturbance;Altered mental status, unspecified Presentation: 08/10 14:56 Chief complaint: EMS states: "Police were called because and michaela were arguing tw[address]. It was just a little more aggressive. When police arrived she couldn't tell them her name, but she is now A and O x 3.". Coronavirus screen: At this time, unable to obtain information related to travel outside the [place] 14:56 Method Of Arrival: EMS: [facility] tw5 15:15 Ebola Screen: No symptoms or risks identified at this time. Initial Sepsis Screen: Does tw5 the patient meet any 2 criteria? No. Patient's initial sepsis screen is negative. Does the patient have a suspected source of infection? No. Patient's initial sepsis screen is negative. Risk Assessment: Do you want to hurt yourself or someone else? Patient reports no desire to harm self or others. Onset of symptoms is unknown. 15:15 Acuity: JAQUI 4 tw5 Triage Assessment: 15:07 General: Appears in no apparent distress. Behavior is agitated. Pain: Denies pain. tw5 Neuro: Level of Consciousness is awake, alert, obeys commands, Oriented to person, place. 15:15 General: Reports " I think he just made me so upset, I forgot my own name." Patient tw5 keeps repeating " I dont know why they brought me here." Nurse answers question, 3 min later patient asks again.. 15:15 Neuro: Level of Consciousness is confused. tw5 Historical: - Allergies: 15:07 adhesive tape; tw5 15:07 Aspirin; tw5 15:07 Codeine; tw5 15:07 erythromycin base; tw 15:07 Latex, Natural Rubber; tw5 15:07 Peanut; tw5 15:07 PENICILLINS; tw5 - PMHx: 15:07 Dementia; Hypertension; tw5 - Immunization history:: Client reports receiving the 2nd dose of the Covid vaccine, Patient states it was 3 or 4 months ago . - Social history:: Smoking status: Patient denies any tobacco usage or history of. - Family history:: not pertinent. Screenin:13 Abuse screen: Denies threats or abuse. Denies injuries from another. "My is a tw5 gentle man, but he knows how to get under my skin. I dont know if I feel safe going home.". Nutritional screening: No deficits noted. Tuberculosis screening: No symptoms or risk factors identified. Fall Risk None identified. No fall in past 12 months (0 pts). Assessment: 15:13 General: Appears in no apparent distress. Behavior is agitated. Neuro: tw5 15:37 General: Called Home provided by patient at [phone] spoke to Mr. Anguiano. tw5 He stated that he would come get her in a little while. . 17:00 General: Reports "I am confused why I am here, I just woke up here." Patient states tw5 that she lives with her mother, and her two sons are 14 and 18. Attempted to call again to see when his ETA would be for picking up Michaela he stated "I am still waiting on Warren to come get me." Mr. Anguiano gave nursing staff Warren's [the son] number. Warren was called and he stated " I have not talked to Mr. Anguiano today at all! I am also not my mothers primary pharmacy customer care specialist, and I don't know why you are calling me!" The situation was explained that Mr. Anguiano was under the impression that Warren would be coming by to pick him up to get Michaela. Warren further stated " I have had 15 calls today for the police stating that my mother is unstable and keeps calling the police on my father, there is no reason that she should be coming home. Mr. Anguiano also doesn't even know what day it is half the time, so I dont know what he is talking about I have not talked to him today.". Neuro: Level of Consciousness is awake, alert, obeys commands, confused, Oriented to person. 17:51 Reassessment: Patient states symptoms have not improved. General: Behavior is agitated. tw5 Neuro: Level of Consciousness is awake, alert, confused. 18:22 Reassessment: Patient states symptoms have not improved. General: Appears in no tw5 apparent distress. comfortable, Behavior is calm, cooperative, Reports. Neuro: Level of Consciousness is awake, alert, obeys commands, confused, Oriented to person, Moves all extremities. Speech is normal. Cardiovascular: Heart tones S1 S2 present Capillary refill < 3 seconds is brisk in bilateral fingers. Respiratory: Airway is patent Trachea midline Respiratory effort is even, Respiratory pattern is regular. Derm: No deficits noted. No signs and/or symptoms reported regarding the dermatologic system. 19:00 Reassessment: Patient appears in no apparent distress at this time. Patient and/or jb4 family updated on plan of care and expected duration. Pain level reassessed. Pt is currently alert and oriented x2. 20:00 Reassessment: Patient appears in no apparent distress at this time. Patient and/or jb4 family updated on plan of care and expected duration. Pain level reassessed. Pt woke from sleep. Currently A\\T\\O x1. Vital Signs: 15:07 BP 168 / 65; Pulse 78; Resp 14; Temp 97.8(TE); Pulse Ox 99% on R/A; Pain 0/10; tw5 18:22 BP 179 / 66; Pulse 69; Resp 14; Pulse Ox 100% on R/A; Pain 0/10; tw5 20:00 BP 132 / 51; Pulse 76; Resp 20; Pulse Ox 98% on R/A; jb4 ED Course: 14:55 Patient arrived in ED. tw5 14:56 Marshall Restrepo MD is Attending Physician. berry 15:07 Rochelle Anthony is Primary Nurse. tw5 15:07 Arm band placed on left wrist. tw5 15:13 No apparent distress. Awaiting re-evaluation by ER provider. tw5 15:13 Patient has correct armband on for positive identification. Bed in low position. Call tw5 light in reach. Side rails up X 1. Pulse ox on. NIBP on. Door closed. Noise minimized. 15:13 No provider procedures requiring assistance completed. tw5 15:15 Triage completed. tw5 15:15 Haily Lloyd MD is Referral Physician. berry 15:45 Awaiting transportation. tw5 17:00 Notified ED physician of other the fact that no family members are picking up the tw5 patient and the patient is becoming more confused. 17:28 Haily Lloyd MD is Hospitalizing Provider. berry 17:51 Awaiting bed assignment. tw5 18:11 Initial lab(s) drawn, Lab(s) recollected, by me. tw5 18:16 COVID-19 : Document "Date of Symptom Onset" if Symptomatic. Sent. tw5 18:16 Basic Metabolic Panel Sent. tw5 18:16 CBC with Diff Sent. tw5 18:18 XRAY Chest (1 view) Sent. tw5 18:22 Patient has correct armband on for positive identification. Placed in gown. Bed in low tw5 position. Call light in reach. Side rails up X 1. men's custom hair piece consultant on. Pulse ox on. NIBP on. Door closed. Noise minimized. Diet: Patient given snack. Patient given water. 18:25 No apparent distress. Resting quietly. Awaiting lab results. tw 18:25 EKG done, by ED staff, reviewed by Marshall Restrepo MD. tw 20:00 Patient admitted, IV remains in place. jb4 Administered Medications: 18:16 Drug: NS 0.9% 500 ml Route: IV; Rate: bolus; Site: right antecubital; tw 18:16 Drug: NS 0.9% 1000 ml Route: IV; Rate: 125 ml/hr; Site: right antecubital; tw5 Outcome: 15:15 Discharge ordered by . berry 17:29 Decision to Hospitalize by Provider. berry 20:27 Admitted to Med/surg accompanied by tech, via stretcher, Report called to Receiving ea nurse on second floor 20:27 Condition: stable 20:27 Instructed on the need for admit. 20:32 Patient left the ED. ea Signatures: Marshall Restrepo MD MD cha Bryson, James RN LUNA jb4 Darlyn Shannon RN RN ea Wood, Tiffany Corrections: (The following items were deleted from the chart) 15:17 15:07 Neuro: Level of Consciousness is awake, alert, obeys commands, Oriented to 5 person, place, situation, tw 17:10 17:03 General: tw5 tw5 17:53 17:03 General: General: tw5 tw5 17:53 17:00 General: tw5 tw5 17:53 17:00 Reassessment: Patient states symptoms have not improved. tw
--- NOTE | 2021-08-10 15:16 | EDPHYS ---
Physician Documentation [facility] Name: Michaela Anguiano Age: 89 yrs Sex: Female : 1930 Arrival Date: 08/10/2021 Time: 14:55 Bed 7 Private MD: ED Physician Marshall Restrepo HPI: 08/10 15:04 This 89 yrs old Female presents to ER via EMS with complaints of Altered berry Mental Status. 15:04 The patient presents with trouble concentrating, upset with . Onset: The berry symptoms/episode began/occurred just prior to arrival, this morning. Possible causes: unknown. Associated signs and symptoms: The patient has no apparent associated signs or symptoms. Patient's baseline: Neuro: alert and fully oriented. The patient has experienced similar episodes in the past, multiple times. Historical: - Allergies: 15:07 adhesive tape; tw5 15:07 Aspirin; tw5 15:07 Codeine; tw5 15:07 erythromycin base; tw5 15:07 Latex, Natural Rubber; tw5 15:07 Peanut; tw5 15:07 PENICILLINS; tw5 - PMHx: 15:07 Dementia; Hypertension; tw5 - Immunization history:: Client reports receiving the 2nd dose of the Covid vaccine, Patient states it was 3 or 4 months ago . - Social history:: Smoking status: Patient denies any tobacco usage or history of. - Family history:: not pertinent. ROS: 15:04 Constitutional: Negative for fever, chills, and weight loss, Eyes: Negative for injury, berry pain, redness, and discharge, ENT: Negative for injury, pain, and discharge, Neck: Negative for injury, pain, and swelling, Cardiovascular: Negative for chest pain, palpitations, and edema, Respiratory: Negative for shortness of breath, cough, wheezing, and pleuritic chest pain, Abdomen/GI: Negative for abdominal pain, nausea, vomiting, diarrhea, and constipation, Back: Negative for injury and pain, : Negative for injury, bleeding, discharge, and swelling, MS/Extremity: Negative for injury and deformity, Skin: Negative for injury, rash, and discoloration, Neuro: Negative for headache, weakness, numbness, tingling, and seizure, Psych: Negative for depression, anxiety, suicide ideation, homicidal ideation, and hallucinations, Allergy/Immunology: Negative for hives, rash, and allergies, Endocrine: Negative for neck swelling, polydipsia, polyuria, polyphagia, and marked weight changes, Hematologic/Lymphatic: Negative for swollen nodes, abnormal bleeding, and unusual bruising. Exam: 15:04 Constitutional: This is a well developed, well nourished patient who is awake, alert, berry and in no acute distress. Head/Face: Normocephalic, atraumatic. Eyes: Pupils equal round and reactive to light, extra-ocular motions intact. Lids and lashes normal. Conjunctiva and sclera are non-icteric and not injected. Cornea within normal limits. Periorbital areas with no swelling, redness, or edema. ENT: Nares patent. No nasal discharge, no septal abnormalities noted. Tympanic membranes are normal and external auditory canals are clear. Oropharynx with no redness, swelling, or masses, exudates, or evidence of obstruction, uvula midline. Mucous membranes moist. Neck: Trachea midline, no thyromegaly or masses palpated, and no cervical lymphadenopathy. Supple, full range of motion without nuchal rigidity, or vertebral point tenderness. No Meningismus. Chest/axilla: Normal chest wall appearance and motion. Nontender with no deformity. No lesions are appreciated. Cardiovascular: Regular rate and rhythm with a normal S1 and S2. No gallops, murmurs, or rubs. Normal PMI, no JVD. No pulse deficits. Respiratory: Lungs have equal breath sounds bilaterally, clear to auscultation and percussion. No rales, rhonchi or wheezes noted. No increased work of breathing, no retractions or nasal flaring. Abdomen/GI: Soft, non-tender, with normal bowel sounds. No distension or tympany. No guarding or rebound. No evidence of tenderness throughout. Back: No spinal tenderness. No costovertebral tenderness. Full range of motion. Skin: Warm, dry with normal turgor. Normal color with no rashes, no lesions, and no evidence of cellulitis. MS/ Extremity: Pulses equal, no cyanosis. Neurovascular intact. Full, normal range of motion. Neuro: Awake and alert, GCS 15, oriented to person, place, time, and situation. Cranial nerves II-XII grossly intact. Motor strength 5/5 in all extremities. Sensory grossly intact. Cerebellar exam normal. Normal gait. Psych: Awake, alert, with orientation to person, place and time. Behavior, mood, and affect are within normal limits. 15:04 Musculoskeletal/extremity: DVT Exam: No signs of deep vein thrombosis. no pain, no swelling, no tenderness, negative Homans' sign noted on exam, no appreciated bluish discoloration, no erythema, no increased warmth. 18:32 ECG was reviewed by the Attending Physician. [place] Vital Signs: 15:07 BP 168 / 65; Pulse 78; Resp 14; Temp 97.8(TE); Pulse Ox 99% on R/A; Pain 0/10; tw5 18:22 BP 179 / 66; Pulse 69; Resp 14; Pulse Ox 100% on R/A; Pain 0/10; tw5 20:00 BP 132 / 51; Pulse 76; Resp 20; Pulse Ox 98% on R/A; jb4 MDM: 14:56 Patient medically screened. [place] 15:08 Differential Diagnosis: electrolyte abnormality. Data reviewed: vital signs, nurses [place] notes. Data interpreted: health researcher: rate is 75 beats/min, rhythm is regular. Counseling: I had a detailed discussion with the patient and/or guardian regarding: the historical points, exam findings, and any diagnostic results supporting the discharge/admit diagnosis, lab results. 08/10 17:26 Order name: Basic Metabolic Panel [place] 08/10 17:26 Order name: CBC with Diff [place] 08/10 17:26 Order name: LFT's; Complete Time: 18:53 [place] 08/10 17:26 Order name: Magnesium; Complete Time: 18:53 [place] 08/10 17:26 Order name: NT PRO-BNP; Complete Time: 18:53 [place] 08/10 17:26 Order name: PT-INR; Complete Time: 18:41 [place] 08/10 17:26 Order name: Troponin (emerg Dept Use Only); Complete Time: 18:53 [place] 08/10 17:26 Order name: XRAY Chest (1 view) [place] 08/10 17:26 Order name: Urine Culture [place] 08/10 17:27 Order name: Basic Metabolic Panel; Complete Time: 18:53 [facility] 08/10 17:27 Order name: CBC with Automated Diff; Complete Time: 18:41 [facility] 08/10 17:36 Order name: COVID-19 : Document "Date of Symptom Onset" if Symptomatic. 08/10 17:37 Order name: [facility] 08/10 19:37 Order name: SARS-COV-2 RT PCR [facility] 08/10 17:26 Order name: EKG; Complete Time: 17:27 [place] 08/10 17:26 Order name: Cardiac monitoring; Complete Time: 18:16 [place] 08/10 17:26 Order name: EKG - Nurse/Tech; Complete Time: 18:26 [place] 08/10 17:26 Order name: IV Saline Lock; Complete Time: 18:16 [place] 08/10 17:26 Order name: Labs collected and sent; Complete Time: 18:18 [place] 08/10 17:26 Order name: O2 Per Protocol; Complete Time: 18:29 [place] 08/10 17:26 Order name: O2 Sat Monitoring; Complete Time: 18:16 [place] 08/10 17:26 Order name: CT Head Brain wo Cont [place] 08/10 17:26 Order name: Urine Dipstick-Ancillary (obtain specimen); Complete Time: 20:01 [place] 08/10 17:48 Order name: CT; Complete Time: 18:41 [facility] 08/10 18:33 Order name: RAD; Complete Time: 18:41 EDMS EC:32 Rate is 61 beats/min. Rhythm is regular. QRS [place] is Normal. CO interval is normal. QRS berry interval is normal. QT interval is normal. No Q waves. T waves are Normal. No ST changes noted. Clinical impression: NSR w/ Non-specific ST/T Changes and No evidence of ischemia. Interpreted by me. Reviewed by me. Administered Medications: 18:16 Drug: NS 0.9% 500 ml Route: IV; Rate: bolus; Site: right antecubital; tw5 18:16 Drug: NS 0.9% 1000 ml Route: IV; Rate: 125 ml/hr; Site: right antecubital; tw5 Disposition Summary: 08/10/21 17:29 Hospitalization Ordered Hospitalization Status: Inpatient Admission berry Provider: Haily Lloyd cha Location: Telemetry/MedSurg (Inpatient)(08/10/21 17:29) berry Condition: Stable(08/10/21 17:29) berry Problem: new(08/10/21 17:29) berry Symptoms: have improved(08/10/21 17:29) berry Bed/Room Type: Standard berry Room Assignment: 217(08/10/21 19:56) Diagnosis - Dementia in other diseases classified elsewhere with behavioral berry disturbance(08/10/21 17:29) - Altered mental status, unspecified berry Forms: - Medication Reconciliation Form berry - SBAR form berry Signatures: Dispatcher [employer] Helen Jasso RN RN Marshall Linares MD MD cha Wood, Rochelle tw5 Corrections: (The following items were deleted from the chart) 17:22 15:15 Home berry berry 17:22 15:15 new berry berry 17:22 15:15 have improved berry berry 17:22 15:15 Stable berry berry 17:22 15:15 Dementia in other diseases classified elsewhere with behavioral disturbance berry berry 17:22 15:15 Adjustment disorder with disturbance of conduct berry berry 19:56 17:29 berry mw
--- NOTE | 2021-08-10 17:48 | RAD REPORT ---
EXAM DESCRIPTION: CT - Head Brain Wo Cont - 08/10/2021 5:40 pm CLINICAL HISTORY: Alteration of awareness/confusion COMPARISON: April 2021 TECHNIQUE: Computed axial tomography of the head was obtained. IV contrast was not requested. All CT scans are performed using dose optimization technique as appropriate and may include automated exposure control or mA/KV adjustment according to patient size. FINDINGS: An intracranial bleed is not seen . The ventricles are normal in caliber. No extra-axial fluid collection is noted. Fluid within the sinuses/ mastoids is not seen. IMPRESSION: No acute intracranial abnormality is seen. If patient's symptoms persist MRI of the bra in would be recommended.
[2021-08-10] MEDS ORDERED: NA CHLORIDE 0.9% 1,000 ML ONE (18:24)
[2021-08-10 18:29] LABS: Protime INR 0.99
[2021-08-10 18:30] LABS: Absolute Lymphocytes (CBC) 1.6 K/uL (0.7-4.9); Basophils % 0.4 % (0-1.3); Hematocrit 39.1 % (36.0-45.0); Lymphocytes % 30.4 % (15.3-44.8); MPV 7.5 fL (7.6-11.3); RBC Red Blood Cell Count 4.22 M/uL (3.86-4.86)
--- NOTE | 2021-08-10 18:33 | RAD REPORT ---
EXAM DESCRIPTION: Carol Single View08/10/2021 5:52 pm CLINICAL HISTORY: cough COMPARISON: December 2020 FINDINGS: The lungs appear clear of acute infiltrate. The heart is normal size IMPRESSION: No acute abnormalities displayed
[2021-08-10 18:45] LABS: ALT/SGPT 17 U/L (12-78); AST/SGOT 9 U/L (15-37); Albumin 3.6 g/dL (3.4-5.0); Alkaline Phosphatase 51 U/L (45-117); BUN Blood Urea Nitrogen 16 mg/dL (7-18); Bicarbonate 32 mmol/L (21-32); Bilirubin Direct 0.2 mg/dL (0-0.2); Bilirubin Total 0.6 mg/dL (0.2-1.0); Glucose Level 106 mg/dL (74-106); Magnesium 2.4 mg/dL (1.8-2.4); NT PRO-BNP 245 pg/mL (<450); Sodium Level 143 mmol/L (136-145); Troponin (Emerg Dept Use Only) < 0.02 ng/mL (0.0-0.045)
[2021-08-10] MEDS: NA CHLORIDE 0.9% 1,000 ML IV SCH (20:43)
[2021-08-10] MEDS ORDERED: ACETAMINOPHEN 325 MG TABLET PO PRN (20:43)
[2021-08-10] MEDS ORDERED: ONDANSETRON 4 MG/2 ML VIAL IV PRN (20:43)
[2021-08-10] MEDS ORDERED: FAMOTIDINE 20 MG/2 ML VIAL IV SCH (21:00)
[2021-08-10] MEDS ORDERED: ZIPRASIDONE MESYLA 20 MG/VIAL IM ONE (21:06)
[2021-08-10] MEDS ORDERED: WATER FOR INJ,STERILE 10 ML IM PRN (21:06)
[2021-08-11 01:10] VITALS: BMI 23.0
[2021-08-11 06:19] LABS: Absolute Lymphocytes (CBC) 1.3 K/uL (0.7-4.9); Basophils % 0.7 % (0-1.3); Hematocrit 35.4 % (36.0-45.0); Lymphocytes % 30.1 % (15.3-44.8); MPV 7.8 fL (7.6-11.3); RBC Red Blood Cell Count 3.82 M/uL (3.86-4.86)
[2021-08-11] MEDS: NA CHLORIDE 0.9% 1,000 ML IV SCH (06:43)
[2021-08-11 06:46] LABS: BUN Blood Urea Nitrogen 17 mg/dL (7-18); Bicarbonate 29 mmol/L (21-32); Glucose Level 100 mg/dL (74-106); Potassium 3.8 mmol/L (3.5-5.1); Sodium Level 145 mmol/L (136-145)
--- NOTE | 2021-08-11 08:06 | HP ---
Date of Admission: 08/10/2021 Chief Complaint: Confusion, hallucination. History Of Present Illness: This is an 89-year-old very pleasant female patient who lives at home with her , has increasing problem with her memory, confusion, altered mental status, and hallucinations. She was brought into the emergency room today for further evaluation and management as the patient's is not able to handle this at home. The patient is having a lot of behavior problem with her underlying dementia, which I believe is due to underlying Alzheimer disease with dementia and having behavior problem with that. For no obvious reason, she gets agitated and upset and mad at her . In the past, we did try to get her into a fdc and she did not stay there and after admission to such facility at a local fdc within less than a day she was sent home as she did not want to stay there and family took her home. Now, family is planning to take her to assisted care living facility in the area. Review of Systems: BLOCKER HAND as mentioned above. All other systems reviewed and negative. Allergies: List reviewed, patient has multiple allergies as listed in chart. Medications: Alprazolam 0.25 mg 2 times a day, Seroquel 50 mg 2 times a day, metoprolol 25 mg 2 times a day, pantoprazole 40 mg daily, vitamin D3 of 5000 unit daily, donepezil 5 mg daily. 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 Past Surgical History: Significant for cataract surgery, cholecystectomy, appendectomy, hysterectomy, and bladder suspension. Family History: Father , had tuberculosis. Mother , had MT. Social History: Negative for smoking and alcohol use. Physical Examination: Vital Signs: Temperature 97.8, pulse 78, respiratory rate 14, blood pressure 168/65, oxygen saturation 99%. Height 62 inches. General: Awake, alert, oriented, not in distress. HEENT: Head atraumatic, normocephalic. Conjunctivae nonerythematous. Sclerae white. Mouth, no thrush or edema noted. Ears/Nose, no mass, lesion, discharge noted. Neck: Supple. No JVD, lymph nodes, bruit, thyromegaly noted. Lungs: Bilateral good equal air entry. Clear to auscultation. No rhonchi. No rales. Heart: Normal heart sounds, no murmur or gallop. Abdomen: Soft, bowel sounds normal. No guarding, rigidity, tenderness, mass, hepatosplenomegaly, distention, or bruit noted. Extremities: No leg edema. No calf tenderness. Skin: No rash, ulcer, cellulitis. Lymphatics: No lymph node enlargement in neck, supraclavicular, infraclavicular region. Neuro: No focal neurological deficit. Chest: Unremarkable. External Genitalia: Deferred. Rectal: Deferred. Laboratory Data: White count 5.1, hemoglobin 13.2, platelets 195. Sodium 143, potassium 4, chloride 108, bicarb 32, BUN 16, creatinine 0.74, glucose 106. Liver function tests normal. COVID-19 test negative. Chest x-ray, no acute cardiopulmonary changes. CAT scan of the head negative for any acute intracranial changes. Impression: 1. Alzheimer disease with dementia, with behavior changes. 2. Hypertension. 3. Mixed hyperlipidemia. 4. Supraventricular tachycardia. 5. Allergic rhinitis. 6. Gastroesophageal reflux disease. 7. Hypothyroidism. Plan: We will admit the patient to hospital for further evaluation and management of this problem. The patient is having increasing behavior problem at home and family is in process of putting her in assisted care facility, meanwhile she ends up in the emergency room and now admitted to the hospital. The patient lives at home with her , who is also old and has significant health problem and he is not able to take care of himself rather he is not able to assist take care of this patient. So, now family has made final decision to take her to one of such local facility. We will go ahead and start her on Abilify starting tomorrow. The patient is not compliant with her medications. Son saw she has not taken most of her medications lately. We will go ahead and start home medications per order and I will see her tomorrow for followup. TIFFANY/MODL Voice ID: [id number] [id number]
[2021-08-11] MEDS: METOPROLOL TAR 25 MG TAB PO SCH ×2 (08:20→21:49)
[2021-08-11] MEDS: ARIPiprazole 5 MG TAB PO SCH (08:20)
[2021-08-11] MEDS ORDERED: FAMOTIDINE 20 MG/2 ML VIAL IV SCH (09:00)
[2021-08-11] MEDS ORDERED: ZIPRASIDONE MESYLA 20 MG/VIAL IM PRN (12:00)
[2021-08-11] MEDS: WATER FOR INJ,STERILE 10 ML IM PRN ×2 (12:12→22:02)
[2021-08-11] MEDS ORDERED: ZIPRASIDONE MESYLA 20 MG/VIAL IM ONE ×3 (12:37→20:47)
--- NOTE | 2021-08-11 16:59 | EKG ---
Test Date: 2021-08-10 Test Time: 18:23:55 Recreational Leader: JUAN JOSÉ MEASUREMENT RESULTS: Intervals: Rate: 61 NC: 156 QRSD: 82 QT: 426 QTc: 428 University: P: 69 NC: 156 QRS: -26 T: 25 INTERPRETIVE STATEMENTS: Normal sinus rhythm Septal infarct, age undetermined Abnormal ECG Compared to ECG 12/21/2020 07:42:40 No significant changes Electronically Signed On 08-11-21 16:57:58 CDT by Segundo Munoz
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
[2021-08-11] MEDS ORDERED: LORAZEPAM 1 MG TABLET PO ONE (20:14)
[2021-08-11] MEDS ORDERED: WATER FOR INJ,STERILE 10 ML IM PRN (21:50)
[2021-08-12] MEDS: PANTOPRAZOLE 40MG TABLET PO SCH (05:19)
[2021-08-12] MEDS: METOPROLOL TAR 25 MG TAB PO SCH ×2 (09:10→20:34)
[2021-08-12] MEDS: ARIPiprazole 5 MG TAB PO SCH (09:10)
[2021-08-12] MEDS: HALOPERIDOL LACT 5 MG/ML INJ IV PRN ×2 (09:16→09:30)
[2021-08-12] MEDS ORDERED: BENZTROPINE 1 MG TAB PO PRN (15:40)
[2021-08-12] MEDS: HALOPERIDOL LACT 5 MG/ML INJ IM PRN (18:22)
[2021-08-12] MEDS ORDERED: LORazepam 2 MG/ML VIAL IM ONE (18:53)
[2021-08-12] MEDS: DIVALPROEX ER 250 MG TAB PO SCH (20:34)
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
[2021-08-13] MEDS: PANTOPRAZOLE 40MG TABLET PO SCH (06:41)
[2021-08-13 08:25] LABS: Urine Appearance CLEAR (Clear); Urine Bilirubin NEGATIVE (Negative); Urine Blood NEGATIVE (Negative); Urine Color YELLOW (Yellow); Urine Glucose NEGATIVE (Negative); Urine Protein NEGATIVE (Negative); Urine Urobilinogen 0.2 mg/dL (0.2-1.0)
[2021-08-13] MEDS: DIVALPROEX ER 250 MG TAB PO SCH ×2 (08:34→14:25)
[2021-08-13 08:35] LABS: Urine Bacteria <20 /HPF (<20); Urine RBC NONE SEEN /HPF (NONE SEEN)
[2021-08-13] MEDS: METOPROLOL TAR 25 MG TAB PO SCH (08:35)
[2021-08-13 08:50] VITALS: O2SAT 96
[2021-08-13] MEDS ORDERED: BENZTROPINE 1 MG TAB PO SCH (09:00)
[2021-08-13 12:57] VITALS: BP 147/71; TEMP 97.4
[2021-08-13] MEDS: HALOPERIDOL LACT 5 MG/ML INJ IM PRN (15:43)
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
--- NOTE | 2021-08-16 09:35 | CON ---
Date of Consultation: 08/12/2021 Reason For Consult: To evaluate the patient on provider's recommendation to manage physical aggressi ve behavior. Chief Complaint: Severe agitation and physical aggression in a patient with a history of dementia. History Of Present Illness: Ms. Michaela Anguiano is an 89-year-old female admitted to the hospital via the ER on August 10, 2021 on account of altered mental status and aggressive beha vior with of hallucination. Psychiatry is consulted by the medical team on account of wor sening physical aggression on the unit. Interval history was provided by mostly the patient's husban d and able to fully comprehend the patient stated that she and her ____ station to see some of her 's relatives. She feels patient is having progr essive memory loss over 5 years and has slowly gotten worse. had become very aggressive. Since the patient's aggression worsens during the evening, she is pacing around the house. She ____ function in the house due to her memory loss. The patient denies having significant psychiatr ic history, dementia and was quite productive and self-sufficient dementia, she was not able to perform any activity. Her denies any change in the patient's level of consc iousness and stated that her memory loss has been profoundly getting worse and says waxing and waning of her memory. He states the patient's aggressive behavior did not have. When her husba nd corrected her, she got angry and stated that staff who were providing care for her. Th e patient currently has substance abuse. The patient has a history of hallucination history of psychosis. The patient is currently on alprazolam 0.25 mg two times a day, __ mg two times a day. She is also on donepezil 5 mg daily on the unit, the patient is cu rrently on Haldol 1 mg IM p.r.n. for agitation and alprazolam . Objective: Vital Signs: Blood pressure is 132/60, respiratory rate is 16, pulse is 65, oxygen on ro om air is 96%, temperature is 97.6. General: Examination revealed well-nourished female, appropriately dressed, not in any acu te distress. cooperative, alert, oriented to person only. Not cooperative with interview psychomotor agitation noted times. Memory and concentration were poor. Mood , frustrated. Affect is labile. Thought process linear, mostly circumstantial. Thought content, no thought. No suicidal ideation or homicidal ideation hallucination. The patie nt is entirely pre-occupied. Insight, judgment impulse control is poor. Fund of knowledge __. Impression: An 89-year-old female with a history of severe dementia, admitted for worsenin g neurocognitive disorder and physical aggression frail looking who is also sick. Diagnosis: Neurocognitive disorder, severe, with behavioral disturbances Recommendations: 1.Increase Haldol to 2 mg IM p.r.n. for agitation. 2.Start cogentin 0.5 mg p.o. q. daily for EPS. 3.Start Depakote 250 mg t.i.d. for mood stability and aggressive behavior. 4.My recommendation is the patient would benefit from psychiatric inpatient admission for mood stabi lization and safety lack of psychosocial support. The patient not be able to p rovide adequate care recommendations have been communicated with team. Thank you for the consult. DUANE/ERLIN Voice ID: [id number] Report ID: [id number]
--- NOTE | 2021-08-19 14:59 | CON ---
Date of Consultation: 08/12/2021 Reason For Consult: To evaluate the patient on provider's recommendation to manage physical aggressi ve behavior. Chief Complaint: Severe agitation and physical aggression in a patient with a history of dementia. History Of Present Illness: Ms. Michaela Anguiano is an 89-year-old female admitted to the hospital via the ER on August 10, 2021 on account of altered mental status and aggressive beha vior with also history of hallucination. Psychiatry is consulted by the medical team on account of w orsening physical aggression on the unit. Interval history was provided by mostly the patient's husb and and able to fully comprehend the patient stated that she and her suleiman e here on a visitation to see some of her 's relatives. She feels irritated with being questi oned. Her tells me that the patient is having progressive memory loss over 5 years and has s lowly gotten worse. He stated that the patient has not been able to perform most of the ADLs and lat gentry had become very aggressive. Since the patient's aggression worsens during the evening, she is pa cing around the house. She function in the house due to her memory loss. The patient den ies having significant psychiatric history premorbid to the dementia and was quite productive and venessa f-sufficient dementia, she was not able to perform any activity. Her denies any c hange in the patient's level of consciousness and stated that her memory loss has been profoundly get ting worse and says waxing and waning of her memory. He states the patient's aggressive behavior ___ did not have. When her corrected her, she got angry and stated that he was trying to make her look bad staff who were providing care for her. The patient currently has substance abuse. The patient has a history of hallucination history of psychosis. The patient is currently on alprazolam 0.25 mg two times a day, mg two times a day. She i s also on donepezil 5 mg daily on the unit, the patient is currently on Haldol 1 mg IM ___ p.r.n. for agitation and alprazolam . Objective: Vital Signs: Blood pressure is 132/60, respiratory rate is 16, pulse is 65, oxygen on ro om air is 96%, temperature is 97.6. General: Examination revealed well-nourished female, appropriately dressed, not in any acu te distress. cooperative, alert, oriented to person only. Not cooperative with interview psychomotor agitation noted times. Memory and concentration were poor. Mood, frustrated. Affect is labile. Thought process linear, mostly circumstantial. Thought content, no delusional thoughts. No suicidal ideation or homicidal ideation hallucination. The patie nt is entirely pre-occupied. Insight, judgment impulse control is poor. Fund of knowledge, unable to assess as the patient is noncooperative. Language skill is fair. Impression: An 89-year-old female with a history of severe dementia, admitted for worsenin g neurocognitive disorder and physical aggression frail looking who is also sick. Diagnosis: Neurocognitive disorder, severe, with behavioral disturbances. Recommendations: 1.Increase Haldol to 2 mg q. 8 hourly IM p.r.n. for agitation. 2.Start cogentin 0.5 mg p.o. q. daily for EPS. 3.Start Depakote 250 mg t.i.d. for mood stability and aggressive behavior. 4.My recommendation is the patient would benefit from psychiatric inpatient admission for mood stabi lization and safety lack of psychosocial support. The patient's , who has medical challenges, will not be able to provide adequate care at home. Recommendations have been communicate d with team. Thank you for the consult. MARIA Voice ID: [id number] Report ID: [id number]
== END 2021-08-13 16:16 | DRG 57 ==
LOC: ER 15:00 → ERHOLD 17:40 → 2ND 20:12
PROVIDERS: ADMIT Internal Medicine; ATTEND Internal Medicine
DX: G30.9 Alzheimer's disease, unspecified (principal); F02.81 Dementia in other diseases classified elsewhere, unspecified severity, with behavioral disturbance; I47.1 Supraventricular tachycardia; F01.51 Vascular dementia, unspecified severity, with behavioral disturbance; I10 Essential (primary) hypertension; E78.2 Mixed hyperlipidemia; J30.9 Allergic rhinitis, unspecified; K21.9 Gastro-esophageal reflux disease without esophagitis; E03.9 Hypothyroidism, unspecified; Z88.0 Allergy status to penicillin; Z91.040 Latex allergy status; Z91.010 Allergy to peanuts; Z20.822 Contact with and (suspected) exposure to COVID-19
CPT/HCPCS: 36415; 70450; 71045; 80048; 80076; 81001; 83735; 83880; 84484; 85025; 85610; 87086; 87088; 93005; 97161; 99285; J1630; J3486; J7030; U0003